=== PATIENT | male | born 1980 | race Caucasian/White ===

== ENCOUNTER 2018-02-27 02:31 | Inpatient (IN) ==
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
--- OUTSIDE RECORDS SUMMARY | 2018-02-27 02:59 | External Medical Summary | Referral Summary ---
:1980 Author Organization [facility] [address] [place] [address] Care Team Providers Name Role Phone Yadiel Sims Primary Care Physician Encounter VC Date(s): 07/11/17 - 07/11/17 [facility] [place] [phone] [place] Discharge Diagnosis: Mixed hyperlipidemia Discharge Diagnosis: HTN (hypertension), benign Discharge Diagnosis: GERD (gastroesophageal reflux disease) Discharge Diagnosis: Back pain Discharge Diagnosis: Type 2 diabetes mellitus Discharge Disposition: 01-Home or Self Care Attending Physician: Yadiel Sims MD Admitting Physician: Yadiel Sims MD Vital Signs Most recent to oldest [Reference Range]: 1 Temperature Tympanic [36.6-38.1 degC] 36.3 degC *LOW* (07/11/17 2:16 PM) Peripheral Pulse Rate [60-100 bpm] 64 bpm (07/11/17 2:16 PM) Blood Pressure [90-140/60-90 mmHg] 134/98 mmHg (07/11/17 2:16 PM) Problem List Condition Effective Dates Status Health Status Informant acne(Confirmed) Resolved ADD/ Hyperactivity(Confirmed) Resolved allergies(Confirmed) Resolved anxiety disorder(Confirmed) Resolved autism(Confirmed) Resolved Back pain(Confirmed) Active HTN (hypertension), Active benign(Confirmed) Evan esophagus(Confirmed) Resolved depression(Confirmed) Resolved Dysuria(Confirmed) Active gastro-esoph reflux(Confirmed) Resolved GERD (gastroesophageal reflux Active disease)(Confirmed) headache(Confirmed) Resolved insomnia(Confirmed) Resolved Abdominal pain, LLQ(Confirmed) Active migraines(Confirmed) [...] TWICE A DAY, # 120 caps, eRx: [facility] #[id number] Start Date: 07/08/17 Status: OrderedGlucometer (DME) DME Item Rashi brand meter Dx E11.9 Testing 1 time daily, See Instructions, # 1 Each, 0 Refill(s), Pharmacy: [facility] #[id number], Rashi brand meter Dx E11.9 Testing 1 [...] HOURS AFTER LUNCHAND SUPPER DX E11.9 s dillons, See Instructions, # 100 Each, 2 Refill(s) Start Date: 12/22/16 Status: OrderedGlucometer strips (DME) DME Item [employer] BG VALUE NO CODE TEST STRIPS test BS BID fasting and alternate every other day 2 hours after lunch and supper. DX: e11.9, See Instructions, # 100 Each, 0 Refill(s), Pharmacy: [facility] #[id number], [employer] VALUE NO CODE TEST STRI... Start Date: 05/23/17 Status: OrderedMelatonin 3 mg, Oral, Bedtime (once a day), 0 Refill(s) Start Date: 07/11/17 Status: Orderedmeloxicam 15 mg oral tablet See Instructions, TAKE ONE TABLET BY MOUTH DAILY, # 30 tabs, eRx: [facility] #[id number] Start Date: 06/20/17 Status: OrderedmetFORMIN 500 mg oral tablet 500 mg 1 tabs, Oral, BID, # 180 tabs, 3 Refill(s), Pharmacy: [facility] # [id number], 1 tabs Oral BID Start Date: 11/25/16 Status: OrderedMetoprolol Succinate ER 50 mg oral tablet, extended release See Instructions, TAKE ONE TABLET BY MOUTH DAILY, # 30 tabs, 2 Refill(s), eRx: [facility] #[id number] Start Date: 05/24/17 Status: OrderedNexIUM 40 mg oral delayed release capsule 40 mg 1 caps, Oral, Daily, # 90 caps, 3 Refill(s), Pharmacy: [facility] # [id number], 1 caps Oral Daily Start Date: 11/25/16 Status: OrderedPatanol 0.1% ophthalmic solution See Instructions, PLACE 1-2 DROPS IN EACH EYE EVERY 12 HOURS NEEDED, # 5 unknown unit, 2 Refill(s), eRx: [facility] #[id number], PLACE 1-2 DROPS IN EACH EYE EVERY 12 HOURS NEEDED Start Date: 01/31/15 Status: OrderedraNITIdine 150 mg oral tablet See Instructions, TAKE TWO TABLETS BY MOUTH TWICE A DAY, # 120 tabs, eRx: [facility] #[id number] Start Date: 06/20/17 Status: OrderedRemeron 30 mg [...] 0 Refill(s) Start Date: 04/04/14 Status: Ordered Immunizations Given and Recorded Vaccine Date Status [...] Procedures Procedure Date Related Diagnosis Body Site Colonoscopy Social History Social History Type Response Smoking Status Current every day smoker; Type: E-Cigarette entered on: 03/21/15 Assessment and Plan Extracted from: Title: Office Visit Note Author: Yadiel Sims MD Date: 07/11/17 1.HTN (hypertension), benign Blood pressure appears to be well controlledat home a little bit high here today will continue to monitor carefully. Continue current treatment plan. Follow-up in 6 months. Laboratory studies ordered for fasting for later this week. Ordered: Comprehensive Metabolic Panel Lipid Panel Office Visit Level 4 Est 61051 2.Type 2 diabetes mellitus Fasting laboratory studies ordered will let them know what those show no change in current treatment for the time being. Ordered: Comprehensive Metabolic Panel Hemoglobin A1c Lipid Panel Office Visit Level 4 Est 82142 3.GERD (gastroesophageal reflux disease) Chronic and stable no change in current treatmentat this time. Ordered: Comprehensive Metabolic Panel Office Visit Level 4 Est 66515 4.Back pain Ordered: Office Visit Level 4 Est 55405 5.Mixed hyperlipidemia Laboratory studies ordered will see what they show neck further recommendations from there.
--- NOTE | 2018-02-27 03:03 | Emergency Department Report ---
General Adult HPI - General Chief complaint: Chest Pain Stated complaint: CP Time Seen by Provider: 02/27/18 02:46 Source: patient Mode of arrival: ambulatory Limitations: no limitations - History of Present Illness HPI narrative: 37-year-old male presents to the emergency department with the chief complaint of midsternal chest pain without radiation. Patient noted onset of symptoms yesterday and presented to [facility] for further evaluation and treatment. Patient was released after having a normal EKG and 2 negative troponins. Patient states that his chest pain never really fully went away and he awoke at approximately 12:30 this morning and decided to seek further evaluation. Patient describes his pain as moderate. Pain is a dull pressure sensation without radiation. No other complaints or associated symptoms. He was at home when his symptoms began. Symptoms have been persistent in nature since onset. - Related Data Home Medications Medication Instructions Recorded Confirmed Esomeprazole Magnesium [Nexium] 40 mg PO DAILY #0 05/20/09 08/30/17 raNITIdine HCl [Zantac] 300 mg PO BID #0 08/27/13 02/27/18 Atomoxetine HCl [Strattera] 80 mg PO HS #0 06/27/16 02/27/18 Dicyclomine HCl 10 mg PO BID #0 06/27/16 08/30/17 Quetiapine Fumarate [Seroquel Xr] 200 mg PO HS #0 06/27/16 02/27/18 Fexofenadine [Dariana] 60 mg PO DAILY 04/25/17 02/27/18 Melatonin 3 mg PO HS 04/25/17 02/27/18 Metformin [Glucophage] 500 mg PO BID 04/25/17 08/30/17 Metoprolol Succinate 50 mg PO DAILY 04/25/17 02/27/18 Meloxicam 15 mg PO DAILY 06/03/17 02/27/18 Remeron (mirtazapine) 30 mg tablet 30 mg PO HS tab 08/17/17 08/30/17 amoxapine 50 mg tablet 75 mg PO BID tab 08/17/17 02/27/18 Allergies Allergy/AdvReac Type Severity Reaction Status Date / Time propofol Allergy Intermediate ARM SWELLS Verified 02/27/18 05:31 AND CASTILLO nitrofurantoin Allergy Mild SHAKING Verified 02/27/18 05:31 Penicillins Allergy Unknown RASH Verified 02/27/18 05:31 pertussis vaccine,fluid Allergy Unknown SEIZURE Verified 02/27/18 05:31 ORANGE OIL AdvReac Unknown SEVERE N/V Uncoded 02/27/18 05:31 SCENTED SOAPS AdvReac Unknown SEVERE Uncoded 02/27/18 05:31 ITCHING Review of Systems Constitutional: Denies: fever, chills Eyes: Denies: eye pain, eye discharge ENT: Denies: ear pain, throat pain Cardiovascular: Reports: chest pain. Denies: palpitations Respiratory: Denies: cough, dyspnea Gastrointestinal: Denies: abdominal pain, nausea, vomiting, diarrhea Genitourinary: Denies: urgency, dysuria Musculoskeletal: Denies: back pain, arthralgia Integumentary: Denies: erythema, rash Neurological: Denies: headache, numbness Psychiatric: Denies: anxiety, depression Endocrine: Denies: polydipsia, polyuria Hematological/Lymphatic: Denies: easy bruising, lymphadenopathy Allergic/Immunologic: Denies: urticaria, itchy eyes PFS Patient Stated Medical History Hypertension Yes Asthma No Sleep Apnea No Diabetes Mellitus Type 2 Yes Gastroesophageal Reflux Yes Disease Other GI Yes: flores's esophagus Osteoarthritis Yes Anesthesia Reactions Yes: to propofol-arm swelling and redness/pain Depression Yes Post Traumatic Stress Disorder Yes Other Behavioral Health Yes: AUTISTIC Surgical History: This patient has had previous operations and procedures as follows: 1. Right inguinal herniorrhaphy and hydrocelectomy on 10/30/[address] Mckeon at [facility] at [place], [place]. Postoperative diagnoses were right indirect inguinal hernia and right communicating scrotal hydrocele. 2. Esophagogastroduodenoscopy with biopsies at the distal esophagus and colonoscopy with random biopsies on 06/20/[address] Godwin at [facility] at [place], [place]. Postoperative diagnoses were hiatal hernia, irregular gastroesophageal junction suggestive of Flores's metaplasia and normal colonoscopy. Biopsies performed at the gastroesophageal junction showed focal intestinal metaplasia. Random biopsies performed throughout the colon showed edema and mild nonspecific chronic inflammation. 3. Left knee arthroscopy by Dr. Carvajal at [facility]. 4. Laparoscopic Charbel fundoplication in [address] Godwin at [place], [place]. 5. Laparoscopic appendectomy on 09/14/[address] Godwin at [facility] at [place], [place]. The pathology report on the appendix showed fecal impaction. There was no acute appendicitis. Discharge diagnoses for this hospitalization were right lower quadrant abdominal pain and autism. 6. Esophagogastroduodenoscopy with biopsies from distal esophagus on 07/08/[address] Godwin at [facility] at [place], [place]. Postoperative diagnoses were history of epigastric abdominal pain, history of right upper quadrant abdominal pain, history of Flores's metaplasia, small hiatal hernia and ongoing endoscopic evidence of Flores's metaplasia. Pathology report on biopsies of the distal esophagus did show Flores's esophagitis. There was no evidence of dysplasia. 7. Arthroscopy of the left knee with reconstruction of medial capsular ligament to the patella on 08/08/[address] Carvajal at [place], [place]. 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 8. Laparoscopic cholecystectomy with intraoperative cholangiogram on 04/07/[address] Montes at [place], [place]. Pathology report diagnoses on the gallbladder were acute and chronic cholecystitis. 9. Esophagogastroduodenoscopy with multiple biopsies of Flores's esophagus on 05/20/[address] Montes at [facility] at [place], [place]. Postoperative diagnoses were Flores's esophagus, status post Charbel fundoplication in 2006 and sliding hiatal hernia. Pathology report on these biopsies showed Flores's esophagitis. Biopsies were negative for dysplasia. 10. Esophagogastroduodenoscopy with biopsies on 06/29/[address] Sid Quevedo at the [facility] at [place], [place]. Postoperative diagnoses were Flores's esophagus and moderate sized hiatal hernia. Biopsies performed at the esophagus showed Flores's esophagus changes. Biopsies were indefinite for dysplasia. 11. Esophagogastroduodenoscopy with biopsies at the distal esophagus and colonoscopy on 07/14/[address] Sid Quevedo at the [facility] at [place], [place]. Postoperative diagnoses were Flores's esophagus, small hiatal hernia and unremarkable colonoscopic exam. Biopsies of the distal esophagus showed chronic esophagitis with intestinal metaplasia. There was no dysplasia. 12. Excision of foreign body from left lateral patellar area on 01/13/[address] Carvajal at [place], [place]. Postoperative diagnosis was foreign body at left lateral patellar region. 13. Esophagogastroduodenoscopy with biopsies on 07/06/[address] Gaines at the [facility] at [place], [place]. Postoperative diagnoses were Flores's esophagus and large sliding hiatal hernia. Biopsies of the distal esophagus showed Flores's esophagus. Biopsies were negative for dysplasia. 14. Endoscopic ultrasound examination of the pancreas and the bile duct on 09/27/[address] Massey at [facility] at [place], [place]. One postoperative diagnosis was no obvious changes of chronic pancreatitis seen in the pancreatic parenchyma. Another postoperative diagnosis was nondilated main pancreatic duct and normal nondilated common bile duct. 15. Esophagogastroduodenoscopy with biopsies of the distal esophagus on 08/28/[address] Montes at [facility] at [place], [place]. Postoperative diagnoses were Flores's esophagus, gastroesophageal reflux disease and recurrence of a sliding hiatal hernia. Biopsies of the distal esophagus showed Flores's esophagus changes. There was no dysplasia. 16. Esophagogastroduodenoscopy with biopsies on 09/09/[address] Mckeon at [facility] at [place], [place]. Postoperative diagnoses were gastroesophageal reflux disease, Flores's esophagus, status post laparoscopic Charbel fundoplication, large recurrent sliding hiatal hernia, gastric polyps and possible gastritis. Biopsies of the distal esophagus showed Flores's esophagus with no dysplasia. Some of the gastric polyps were removed and found to be benign hyperplastic gastric polyps. Biopsies of the cardia of the stomach showed mild patchy chronic gastritis. COMFORT test study at this procedure was negative. The patient has had other previous hospitalizations as follows: 1. Hospitalized from 06/21/08 to 06/22/08 at [facility] at [place], [place]. Admission diagnoses were alcohol intoxication, history of depression, and gastroesophageal reflux disease. Family History: Reviewed and noncontributory - Social History Smoking status: Current every day smoker second hand exposure: No Substance use type: does not use Alcohol intake frequency: does not drink Current occupational status: unemployed Does patient use chewing tobacco?: No Physical Exam - Limitations Limitations: no limitations - General General appearance: alert, in no apparent distress - Normal Exams: Head:: Normocephalic without trauma Eyes:: Pupils are PERRLA w/ EOMI, No scleral icterus, irritation, or foreign bodies noted ENMT:: No facial trauma, nasal exudates, pharyngeal erythema, or exudates are noted Dental: No fractured, loose, or missing teeth noted Neck:: Full range of motion, without adenopathy, JVD, bruits or thyromegaly Chest/Respirations:: Clear all guerrero, with good airflow, and symmetry bilaterally Cardiovascular:: Regular rate and rhythm, without murmur or gallop, Pulses 2+ all extremities, capillary refill, <2 seconds all extremities Abdomen:: Bowel sounds positive, soft, non-tender, non-distended, no hepatosplenomegaly, masses or bruits noted Lymphatic:: No lymphadenopathy, or lymphedema noted Musculoskeletal:: No tenderness, or deformity noted, good range of motion, all extremities Integumentary:: No rashes, hives, or bruising noted, hair and nails, without abnormality Neurological:: Patient is alert, and oriented, cranial nerves, motor/sensory/ cerebellar, exams w/o gross deficits, to observation Psychiatric:: Patient exhibits, appropriate attention, emotion and affect Course Vital Signs Temperature 98.2 F 02/27/18 02:38 Pulse Rate 89 02/27/18 02:38 Respiratory Rate 20 02/27/18 02:38 Blood Pressure 152/87 H 02/27/18 02:38 Pulse Oximetry 99 02/27/18 02:38 Temperature 98.2 F 02/27/18 02:38 Pulse Rate 89 02/27/18 02:38 Respiratory Rate 20 02/27/18 02:38 Blood Pressure 152/87 H 02/27/18 02:38 Pulse Oximetry 99 02/27/18 02:38 Medical Decision Making - [facility] Narrative Medical decision making narrative: Labs / imaging discussed in detail with the patient and family and questions are answered. Patient is given 324 mg of aspirin by mouth times one. Patient is given Lovenox 1 mg/kg subcutaneously 1 in the emergency department. Patient is given 40 mEq of calcium orally times one. Patient is given parental narcotic pain medication with resolution of pain. He remains pain-free in the emergency department. EKG is repeated does not show any ST changes. Patient is discussed with Dr. Gómez Chaney of cardiology and will be admitted to the service of the [facility]. Patient is discussed with Dr. Milton Laughlin who agrees to accept the patient to his service for further evaluation and treatment. Patient and family are in agreement with the current plan of management. Patient is admitted to the hospital in improved condition. No further orders from accepting or consulting physicians are in agreement with the current plan of management. - Differential Diagnosis ACS, pneumothorax, chest wall pain, Metabolic disorder - Lab Data Result diagrams: 02/27/18 03:32 02/27/18 03:32 - Radiology Data Chest x-ray: No acute processes. - EKG Data EKG #1 EKG results narrative: Sinus rhythm. 86 bpm. No STEMI. Reviewed with Dr. Chaney. EKG #2 EKG results narrative: Sinus rhythm. 89 bpm. No STEMI. Normal EKG. Reviewed with Dr. Chaney. Critical Care Time Critical Care Time: Yes Total Critical Care Time: 47 Attestation: 47 minutes of critical care time was assessed to the patient due to the need for complex medical decision making, potential for decompensation, and the need for repeat assessment at the bedside. Patient had a positive troponin value. Critical care time was spent treating the patient, documenting the medical record, making telephone calls on the patient's behalf, and updating family. Patient was admitted to the ICU for further evaluation and treatment. Disposition Clinical Impression: Elevated troponin Disposition: To [facility] [place] Acute Care Condition: Improved Time of Disposition: 05:00 - Seen By: physician
[2018-02-27] MEDS ORDERED: ASPIRIN 81 MG CHEWABLE TABLET PO ONE (04:20)
[2018-02-27] MEDS ORDERED: FentaNYL 100 MCG/2 ML INJECTION IVP ONE (04:20)
[2018-02-27] MEDS ORDERED: ENOXAPARIN 80 MG/0.8 ML INJECTION SQ ONE (05:11)
[2018-02-27] MEDS ORDERED: CLOPIDOGREL 75 MG TABLET PO ONE (05:49)
[2018-02-27] MEDS ORDERED: DEXTROSE 50% SYRINGE 50ml (1 AMP) IVP PRN (05:50)
[2018-02-27] MEDS ORDERED: NITROGLYCERIN 0.4 MG SUBLINGUAL TABLET SL PRN ×2 (05:50→12:40)
[2018-02-27] MEDS ORDERED: INSULIN ASPART 100unit/ml INJECTION SQ PRN (05:50)
[2018-02-27] MEDS ORDERED: MORPHINE SULFATE 2mg INJECTION IVP PRN (05:50)
[2018-02-27] MEDS ORDERED: ONDANSETRON 4 MG/2 ML INJECTION IVP PRN (05:50)
[2018-02-27] MEDS ORDERED: PANTOPRAZOLE 40 MG TABLET PO ONE (05:50)
[2018-02-27] MEDS ORDERED: ENOXAPARIN 150 MG/ML INJECTION SQ SCH (05:50)
[2018-02-27 05:57] VITALS: BMI 25.1
[2018-02-27] MEDS ORDERED: ENOXAPARIN 80 MG/0.8 ML INJECTION SQ SCH (06:15)
--- NOTE | 2018-02-27 06:20 | History & Physical Report ---
History of Present Illness Date: 02/27/18 Chief complaint: chest pain HPI: This is a 37 y/o male with a history of DM1, dyslipidemia, HTN and autism. The pateint has been experiencing intermittent chest pain for the past month. The patient describes these pains as not provoked. substernal pressure, non readiating, mild dyspnea, no nausea/vomiting. The pateint presented to [facility] earlier yesterday and 2 enz and ekg normal. discharged. His sx persisted and he presented to [place] ED where first enz was positve. EKG continued to be quiet. Pain resolved with fentanyl. Care was discussed with [facility] who r/c local admission as long as pain free. Lovenox started. Cardiology r/c plavix as well . Note that his brother one year ago and post mortem demonstrated 2 vessel CAD. Review of Systems Review of systems: no headache, no change in vision, no fever, chills or sweats, no neck or jaw pain, mild dyspnea on exertion, no heart palpations, no abdomen pain, no nausea/ vomiting, no focal neuro complaints. 12 point ROS negative except for described above. Past Medical History Medical History Updates: HTN, dm 2, dyslipidemia, autism Surgical History: This patient has had previous operations and procedures as follows: 1. Right inguinal herniorrhaphy and hydrocelectomy on 10/30/[address] Mckeon at [facility] at [place], [place]. Postoperative diagnoses were right indirect inguinal hernia and right communicating scrotal hydrocele. 2. Esophagogastroduodenoscopy with biopsies at the distal esophagus and colonoscopy with random biopsies on 06/20/[address] Godwin at [facility] at [place], [place]. 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 Biopsies performed at the gastroesophageal junction showed focal intestinal metaplasia. Random biopsies performed throughout the colon showed edema and mild nonspecific chronic inflammation. 3. Left knee arthroscopy by Dr. Carvajal at [facility]. 4. Laparoscopic Charbel fundoplication in [address] Godwin at [facility] at [place], [place]. 5. Laparoscopic appendectomy on 09/14/[address] Godwin at [facility] [place], [place]. The pathology report on the appendix showed fecal impaction. There was no acute appendicitis. Discharge diagnoses for this hospitalization were right lower quadrant abdominal pain and autism. 6. Esophagogastroduodenoscopy with biopsies from distal esophagus on 07/08/[address] Godwin at [facility] at [place], [place]. Postoperative diagnoses were history of epigastric abdominal pain, history of right upper quadrant abdominal pain, history of Esparza's metaplasia, small hiatal hernia and ongoing endoscopic evidence of Esparza's metaplasia. Pathology report on biopsies of the distal esophagus did show Esparza's esophagitis. There was no evidence of dysplasia. 7. Arthroscopy of the left knee with reconstruction of medial capsular ligament to the patella on 08/08/[address] Carvajal at [place], [place]. 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 8. Laparoscopic cholecystectomy with intraoperative cholangiogram on 04/07/[address] Montes at [place], [place]. Pathology report diagnoses on the gallbladder were acute and chronic cholecystitis. 9. Esophagogastroduodenoscopy with multiple biopsies of Esparza's esophagus on 05/20/[address] Montes at [facility] at [place], [place]. Postoperative diagnoses were Esparza's esophagus, status post Charbel fundoplication in 2006 and sliding hiatal hernia. Pathology report on these biopsies showed Esparza's esophagitis. Biopsies were negative for dysplasia. 10. Esophagogastroduodenoscopy with biopsies on 06/29/[address] Sid Quevedo at the [facility] at [place], [place]. Postoperative diagnoses were Esparza's esophagus and moderate sized hiatal hernia. Biopsies performed at the esophagus showed Esparza's esophagus changes. Biopsies were indefinite for dysplasia. 11. Esophagogastroduodenoscopy with biopsies at the distal esophagus and colonoscopy on 07/14/[address] Sid Quevedo at the [facility] at [place], [place]. Postoperative diagnoses were Esparza's esophagus, small hiatal hernia and unremarkable colonoscopic exam. Biopsies of the distal esophagus showed chronic esophagitis with intestinal metaplasia. There was no dysplasia. 12. Excision of foreign body from left lateral patellar area on 01/13/[address] Carvajal at [place], [place]. Postoperative diagnosis was foreign body at left lateral patellar region. 13. Esophagogastroduodenoscopy with biopsies on 07/06/[address] Gaines at the [facility] at [place], [place]. Postoperative diagnoses were Esparza's esophagus and large sliding hiatal hernia. Biopsies of the distal esophagus showed Esparza's esophagus. Biopsies were negative for dysplasia. 14. Endoscopic ultrasound examination of the pancreas and the bile duct on 09/27/[address] Massey at [facility] at [place], [place]. One postoperative diagnosis was no obvious changes of chronic pancreatitis seen in the pancreatic parenchyma. Another postoperative diagnosis was nondilated main pancreatic duct and normal nondilated common bile duct. 15. Esophagogastroduodenoscopy with biopsies of the distal esophagus on 08/28/[address] Montes at [facility] [place], [place]. Postoperative diagnoses were Esparza's esophagus, gastroesophageal reflux disease and recurrence of a sliding hiatal hernia. Biopsies of the distal esophagus showed Esparza's esophagus changes. There was no dysplasia. 16. Esophagogastroduodenoscopy with biopsies on 09/09/[address] Mckeon at [facility] [place], [place]. Postoperative diagnoses were gastroesophageal reflux disease, Esparza's esophagus, status post laparoscopic Charbel fundoplication, large recurrent sliding hiatal hernia, gastric polyps and possible gastritis. Biopsies of the distal esophagus showed Esparza's esophagus with no dysplasia. Some of the gastric polyps were removed and found to be benign hyperplastic gastric polyps. Biopsies of the cardia of the stomach showed mild patchy chronic gastritis. COMFORT test study at this procedure was negative. The patient has had other previous hospitalizations as follows: 1. Hospitalized from 06/21/08 to 06/22/08 at [facility] at [place], [place]. Admission diagnoses were alcohol intoxication, history of depression, and gastroesophageal reflux disease. Family History Updates: CAD brother Family History: As Above - Social History Smoking status: Current every day smoker Substance use type: does not use Alcohol intake frequency: does not drink Household members: none Current residence: Apartment/Private Home Medications Home Medications Medication Instructions Recorded Confirmed Type Esomeprazole Magnesium [Nexium] 40 mg PO DAILY #0 05/20/09 08/30/17 History raNITIdine HCl [Zantac] 300 mg PO BID #0 08/27/13 02/27/18 History Atomoxetine HCl [Strattera] 80 mg PO HS #0 06/27/16 02/27/18 History Dicyclomine HCl 10 mg PO BID #0 06/27/16 08/30/17 History Quetiapine Fumarate [Seroquel Xr] 200 mg PO HS #0 06/27/16 02/27/18 History Fexofenadine [Dariana] 60 mg PO DAILY 04/25/17 02/27/18 History Melatonin 3 mg PO HS 04/25/17 02/27/18 History Metformin [Glucophage] 500 mg PO BID 04/25/17 08/30/17 History Metoprolol Succinate 50 mg PO DAILY 04/25/17 02/27/18 History Remeron (mirtazapine) 30 mg tablet 30 mg PO HS tab 08/17/17 08/30/17 History Allergies Allergy/AdvReac Type Severity Reaction Status Date / Time propofol Allergy Intermediate ARM SWELLS Verified 02/27/18 05:31 AND CASTILLO nitrofurantoin Allergy Mild SHAKING Verified 02/27/18 05:31 Penicillins Allergy Unknown RASH Verified 02/27/18 05:31 pertussis vaccine,fluid Allergy Unknown SEIZURE Verified 02/27/18 05:31 pantoprazole [From Protonix] AdvReac Intermediate Nausea and Verified 02/27/18 08:38 Vomiting ORANGE OIL AdvReac Unknown SEVERE N/V Uncoded 02/27/18 05:31 SCENTED SOAPS AdvReac Unknown SEVERE Uncoded 02/27/18 05:31 ITCHING Exam Vital Signs: Temperature 98.2 F 02/27/18 02:38 Pulse Rate 88 02/27/18 04:14 Respiratory Rate 18 02/27/18 04:58 Blood Pressure 143/86 H 02/27/18 04:14 Pulse Oximetry 100 02/27/18 04:14 Telemetry Rhythm: Sinus Rhythm Height/Weight/BMI: Height 1.75 m Weight 77.3 kg Body Mass Index 25.1 - Constitutional Present: no acute distress - Routine HEENT Exam Head: Present: normocephalic Eye: Present: PERRL ENT: Present: mucous membranes moist - Routine Neck Exam Present: supple - Routine Respiratory Exam Present: CTA bilaterally - Routine Cardiovascular Exam Present: RRR - Routine Abdominal Exam Present: soft, non tender - Routine Extremities Exam Present: no edema - Routine Back/Spine/Pelvis Exam Back/Spine: Present: full ROM - Routine Skin Exam Present: dry - Routine Neurological Exam Present: alert, oriented X3, normal tone - Routine Psychiatric Exam Present: normal affect, normal thought process Results - Labs CBC & Chem 7: 02/27/18 03:32 02/27/18 03:32 Labs: reviewed and will be discussed below pCXR no acute process EKG sinus wihtout acute ischemic changes Assessment and Plan (1) NSTEMI (non-ST elevated myocardial infarction) Current visit: Yes Status: Acute (2) DM type 2 (diabetes mellitus, type 2) Current visit: Yes Status: Acute (3) Dyslipidemia Current visit: Yes Status: Acute Assessment and Plan: 1. NSTEMI acute POA: cardiology will see. plan to cath. lovenox, plavix ( card r/c), aspirin in ED, NPO. risk include dm2, HtN, dyslipidemia, family hx. 2. dM2 chronic POA: correctional plan 3. dyslipidemia: statin 4. hx of autism chronic POA: to be aware of 5. tobacco abuse: currently vap's. continue to encourage to stop 6. DVT ppx; SCD, lovenox 7. GI ppx; Rx for prpotonix. states it causes emesis. (held). Gerber Assessment Elevated troponin - NSTEMI Hypernatremia (POA) Hypokalemia (POA) Type II DM HTN HDL Tobacco dependency Autism Plan Inpatient admission to [facility] for treatment of NSTEMI. Anticipate greater than 2 midnights of care needed. Initiate ASA therapy. Start Lovenox. Consult Dr Chaney - anticipates cardiac cath for further evaluation. Will keep pt NPO for cath and hold metformin. ECHO secondary to NSTEMI Tobacco cessation information. IVF of 1/2NS with potassium to help hydration and correct electrolytes. Continue home medications, holding metformin due to cath. Monitor blood sugars due to DM. Care to return to Dr Sims at time of discharge from [facility]. DVT Prophylaxis: SCD's, Lovenox Resuscitation Status: Full Code - Time spent with patient Time with patient PN: 35 minutes - Physician Narrative Physician: Gildardo Mayes MD Narrative: Date: 02/27/18 Time: 1754 GERBER Have independently interviewed and examined pt. Chart reviewed. Case discussed with pt's mother and Dr Chaney. Reviewed above not and concur. CC: Chest pain. HPI: 37 y/o male presents to ED for evaluation of intermittent chest pain over the past month. Reports retrosternal pain ('right where my heart is' pointing to sternum). Notes mild dyspnea. Pain will increase with deep breath. Not feeling palpitations or heart irregularity. Can worsen with activities. No having increasing acid reflux or indigestion. Denies pain with swallow or sensation of food catching with swallow. Appetite stable-no nausea or vomiting. Not having cough or congestion. No f/c. Urinating well. No headache or head pain. No neurological changes. Apparently was seen at [facility] yesterday for evaluation: 2 sets of enzymes and EKG negative. Discharged. Came to [facility] as symptoms persisted. Evaluated in ED. Initial Troponin showing elevation. Patient admitted to [facility] for further evaluation and cardiac care. Anticipated length of stay though to be greater than 2 midnights due to acute NSTEMI. PHMx: Type II DM, HTN, HDL, Tobacco dependency, Autism PSxHx: see above. ALL: see MAR MEDS: see MAR SHx: Single. Resides independently in [facility] in [place] with guard dog. Quits ETOH. 'Vaps' Dr Sims is PCP FHx: Heart disease in both sides of family. Younger brother -was found to have CAD on post mortem exam. ROS: as in HPI. Remainder of 10 point ROS discussed with patient and negative EXAM GEN: WDWNWM awake and alert HEENT: NC/AT PERRLA EOMI MMM Neck: Supple, trachea midline Lungs: clear bilaterally without crackles of wheezes CV: regular without murmur AB: soft flat NT/ND +BS EXT: no c/c/e Skin: warm and dry Neuro: CN II-XII intact, no focal deficits Psych: awake alert thoughts linear MS: normal muscle mass and tone in upper and lower ext Assessment Elevated troponin - NSTEMI Hypernatremia (POA) Hypokalemia (POA) Type II DM HTN HDL Tobacco dependency Autism Plan Inpatient admission to [facility] for treatment of NSTEMI. Anticipate greater than 2 midnights of care needed. Initiate ASA therapy. Start Lovenox. Consult Dr Chaney - anticipates cardiac cath for further evaluation. Will keep pt NPO for cath and hold metformin. ECHO secondary to NSTEMI Tobacco cessation information. IVF of 1/2NS with potassium to help hydration and correct electrolytes. Continue home medications, holding metformin due to cath. Monitor blood sugars due to DM. Care to return to Dr Sims at time of discharge from [facility]. Hospital Course Summary Disclaimer: The visit summary below is not to be considered part of the above Progress Note. Hospital Course: 02/27/18 Inpatient admission to [facility] for treatment of NSTEMI. Anticipate greater than 2 midnights of care needed. Initiate ASA therapy. Start Lovenox. Consult Dr Chaney - anticipates cardiac cath for further evaluation. Will keep pt NPO for cath and hold metformin. ECHO secondary to NSTEMI Tobacco cessation information. IVF of 1/2NS with potassium to help hydration and correct electrolytes. Continue home medications, holding metformin due to cath. Monitor blood sugars due to DM. Care to return to Dr Sims at time of discharge from [facility].
--- NOTE | 2018-02-27 08:10 | XRay Report ---
Indication: pain PROCEDURE: XR chest 1V: Encounter: Initial Comparison: 07/26/2017 Findings: There is a hiatal hernia in the middle mediastinum with an air-fluid level. Heart size is normal. The lungs are clear. There is no focal opacity to suggest atelectasis or pneumonia. No mediastinal or hilar adenopathy. No pleural effusion. There is no significant tortuosity of the descending thoracic aorta. There is mild degenerative disc disease of the thoracic spine. IMPRESSION: No acute process. .
[2018-02-27] MEDS ORDERED: METOCLOPRAMIDE 10mg/2ml INJECTION IVP PRN (08:22)
[2018-02-27] MEDS ORDERED: PANTOPRAZOLE 40 MG INJECTION IVP SCH (09:00)
[2018-02-27] MEDS: SALINE FLUSH 10ml SYRINGE IVF PRN ×2 (09:41→09:42)
[2018-02-27] MEDS: 1/2 NS with KCL 20mEq 1,000 ML IV SCH ×2 (10:14→16:13)
[2018-02-27] MEDS ORDERED: NS 500 ML IV SCH (10:15)
[2018-02-27] MEDS ORDERED: Verapamil 5 MG/2 ML VIAL ONE (10:52)
[2018-02-27] MEDS ORDERED: MIDAZOLAM 2mg/2ml INJECTION ONE ×2 (10:52→12:01)
[2018-02-27] MEDS ORDERED: HEPARIN 1,000unit/ml INJECTION 10ml ONE (10:54)
[2018-02-27] MEDS ORDERED: LIDOCAINE 1% (10mg/ml) 30ml SDV INJ ONE (10:54)
[2018-02-27] MEDS ORDERED: NITROGLYCERIN 50MG INJECTION IV ONE (10:54)
[2018-02-27] MEDS ORDERED: HEPARIN 1,000 UNITS/500 ML PREMIX (*CVL ONLY*) IV ONE (10:54)
[2018-02-27] MEDS ORDERED: FentaNYL 100 MCG/2 ML INJECTION ONE (10:55)
--- NOTE | 2018-02-27 11:36 | Cardiology Consult Note ---
History of Present Illness Consult reason: chest pain History of present illness: This is a 37 y/o male with a history of DM1, dyslipidemia, HTN and autism. The pateint has been experiencing intermittent chest pain for the past month. The patient describes these pains as not provoked. substernal pressure, non readiating, mild dyspnea, no nausea/vomiting. The pateint presented to [facility] earlier yesterday and 2 enz and ekg normal. discharged. His sx persisted and he presented to [place] ED where first enz was positve. EKG continued to be quiet. Pain resolved with fentanyl. Care was discussed with [facility] who r/c local admission as long as pain free. Lovenox started. Cardiology r/c plavix as well . Note that his brother one year ago and post mortem demonstrated 2 vessel CAD. History is mostly provided by patient's mother. Patient has been having more chest pain in the past week yesterday while shopping at [employer] he felt about to blackout and experienced near heaviness in the chest felt like someone sitting on his chest no associated palpitations. He presents to [facility] emergency room was observed for 4 hours pain resolved and apparently his enzymes and EKGs were unremarkable so was released home. Around 2 AM he called his mother expressing recurrent severe substernal chest pressure and was all soaked in sweats. Unremarkable EKG in our emergency room but elevated troponin 0.2 triggered a cardiac consultation, and I stayed in touch with Dr. Rudolph regarding his management. His chest pain resolved with fentanyl in ER he was treated for acute HI with aspirin loading dose of Plavix and full dose Lovenox. Patient was admitted to CCU under hospitalist service. He remains nothing by mouth. Right around 8 AM while in laying in bed he complained to his nurse of left-sided chest pain that was worse with laying down and breathing, improved by sitting up and resolved following one sublingual nitroglycerin. Was positional as well worse with laying on the left side. EKG did not show ST elevation or depression and no EKG signs of pericarditis either. See physical exam below as I did not here pericardial friction rub. Obtained his echocardiogram a stat and reviewed the beginning of it being obtained by mechanic foreman did not show any significant pericardial effusion. Patient and mother were quite emotional and broke out in tears telling me about his brother that passed in August at age 30. Patient also has a long-standing history of GI problems GERD and multiple procedures, see below, patient reports improvement of his heartburn on proton pump inhibitors. Review of Systems Review of systems: no headache, no change in vision, no fever, chills , no neck or jaw pain, mild dyspnea on exertion, no heart palpations, no abdomen pain, no nausea/vomiting, no focal neuro complaints. 12 point ROS negative except for described above. Review of Systems All systems PM: 10-point ROS was reviewed, no additional remarkable complaints except PFSH Patient Stated Medical History Hypertension Yes Diabetes Mellitus Type 2 Yes Gastroesophageal Reflux Yes Disease Other GI Yes: flores's esophagus Osteoarthritis Yes Anesthesia Reactions Yes: to propofol-arm swelling and redness/pain Depression Yes Post Traumatic Stress Disorder Yes Other Behavioral Health Yes: AUTISTIC Medical History Updates: HTN, dm 2, dyslipidemia, autism Surgical History: This patient has had previous operations and procedures as follows: 1. Right inguinal herniorrhaphy and hydrocelectomy on 10/30/[address] Mckeon at [facility] [place], [place]. Postoperative diagnoses were right indirect inguinal hernia and right communicating scrotal hydrocele. 2. Esophagogastroduodenoscopy with biopsies at the distal esophagus and colonoscopy with random biopsies on 06/20/[address] Godwin at [place], [place]. Postoperative diagnoses were hiatal hernia, irregular gastroesophageal junction suggestive of Flores's metaplasia and normal colonoscopy. Biopsies performed at the gastroesophageal junction showed focal intestinal metaplasia. Random biopsies performed throughout the colon showed edema and mild nonspecific chronic inflammation. 3. Left knee arthroscopy by Dr. Carvajal at [facility]. 4. Laparoscopic Charbel fundoplication in [address] Godwin at [facility] [place] [facility] [place], [place]. 5. Laparoscopic appendectomy on 09/14/[address] Godwin at [place], [place]. The pathology report on the appendix showed fecal impaction. There was no acute appendicitis. Discharge diagnoses for this hospitalization were right lower quadrant abdominal pain and autism. 6. Esophagogastroduodenoscopy with biopsies from distal esophagus on 07/08/[address] Godwin at [facility] [place], [place]. Postoperative diagnoses were history of epigastric abdominal pain, history of right upper quadrant abdominal pain, history of Flores's metaplasia, small hiatal hernia and ongoing endoscopic evidence of Flores's metaplasia. Pathology report on biopsies of the distal esophagus did show Flores's esophagitis. There was no evidence of dysplasia. 7. Arthroscopy of the left knee with reconstruction of medial capsular ligament to the patella on 08/08/[address] Carvajal at [facility] [place], [place]. 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 8. Laparoscopic cholecystectomy with intraoperative cholangiogram on 04/07/[address] Montes at [facility] [place], [place]. Pathology report diagnoses on the gallbladder were acute and chronic cholecystitis. 9. Esophagogastroduodenoscopy with multiple biopsies of Flores's esophagus on 05/20/[address] Montes at [facility] [place] [facility] [place], [place]. Postoperative diagnoses were Flores's esophagus, status post Charbel fundoplication in 2006 and sliding hiatal hernia. Pathology report on these biopsies showed Flores's esophagitis. Biopsies were negative for dysplasia. 10. Esophagogastroduodenoscopy with biopsies on 06/29/[address] Sid Quevedo at the [facility] [place], [place]. Postoperative diagnoses were Flores's esophagus and moderate sized hiatal hernia. Biopsies performed at the esophagus showed Flores's esophagus changes. Biopsies were indefinite for dysplasia. 11. Esophagogastroduodenoscopy with biopsies at the distal esophagus and colonoscopy on 07/14/[address] Sid Quevedo at the [facility] at [place], [place]. Postoperative diagnoses were Flores's esophagus, small hiatal hernia and unremarkable colonoscopic exam. Biopsies of the distal esophagus showed chronic esophagitis with intestinal metaplasia. There was no dysplasia. 12. Excision of foreign body from left lateral patellar area on 01/13/[address] Carvajal at [facility] [place] [facility] [place], [place]. Postoperative diagnosis was foreign body at left lateral patellar region. 13. Esophagogastroduodenoscopy with biopsies on 07/06/[address] Gaines at the [facility] [place], [place]. Postoperative diagnoses were Flores's esophagus and large sliding hiatal hernia. Biopsies of the distal esophagus showed Flores's esophagus. Biopsies were negative for dysplasia. 14. Endoscopic ultrasound examination of the pancreas and the bile duct on 09/27/[address] Massey at [facility] at [place], [place]. One postoperative diagnosis was no obvious changes of chronic pancreatitis seen in the pancreatic parenchyma. Another postoperative diagnosis was nondilated main pancreatic duct and normal nondilated common bile duct. 15. Esophagogastroduodenoscopy with biopsies of the distal esophagus on 08/28/[address] Montes at [facility] [place] [facility] [place], [place]. Postoperative diagnoses were Flores's esophagus, gastroesophageal reflux disease and recurrence of a sliding hiatal hernia. Biopsies of the distal esophagus showed Flores's esophagus changes. There was no dysplasia. 16. Esophagogastroduodenoscopy with biopsies on 09/09/[address] Mckeon at [facility] at [place], [place]. Postoperative diagnoses were gastroesophageal reflux disease, Flores's esophagus, status post laparoscopic Charbel fundoplication, large recurrent sliding hiatal hernia, gastric polyps and possible gastritis. Biopsies of the distal esophagus showed Flores's esophagus with no dysplasia. Some of the gastric polyps were removed and found to be benign hyperplastic gastric polyps. Biopsies of the cardia of the stomach showed mild patchy chronic gastritis. COMFORT test study at this procedure was negative. The patient has had other previous hospitalizations as follows: 1. Hospitalized from 06/21/08 to 06/22/08 at [facility] [place], [place]. Admission diagnoses were alcohol intoxication, history of depression, and gastroesophageal reflux disease. Family History Updates: CAD brother - Social History Smoking status: Current every day smoker second hand exposure: No Substance use type: does not use Alcohol intake frequency: does not drink Household members: none Current occupational status: unemployed Does patient use chewing tobacco?: No Current residence: Apartment/Private Home Medications Home Medications Medication Instructions Recorded Confirmed Type Esomeprazole Magnesium [Nexium] 40 mg PO DAILY #0 05/20/09 08/30/17 History raNITIdine HCl [Zantac] 300 mg PO BID #0 08/27/13 02/27/18 History Atomoxetine HCl [Strattera] 80 mg PO HS #0 06/27/16 02/27/18 History Dicyclomine HCl 10 mg PO BID #0 06/27/16 08/30/17 History Quetiapine Fumarate [Seroquel Xr] 200 mg PO HS #0 06/27/16 02/27/18 History Fexofenadine [Dariana] 60 mg PO DAILY 04/25/17 02/27/18 History Melatonin 3 mg PO HS 04/25/17 02/27/18 History Metformin [Glucophage] 500 mg PO BID 04/25/17 08/30/17 History Metoprolol Succinate 50 mg PO DAILY 04/25/17 02/27/18 History Meloxicam 15 mg PO DAILY 06/03/17 02/27/18 History Remeron (mirtazapine) 30 mg tablet 30 mg PO HS tab 08/17/17 08/30/17 History amoxapine 50 mg tablet 75 mg PO BID tab 08/17/17 02/27/18 History Allergies Allergy/AdvReac Type Severity Reaction Status Date / Time propofol Allergy Intermediate ARM SWELLS Verified 02/27/18 05:31 AND CASTILLO nitrofurantoin Allergy Mild SHAKING Verified 02/27/18 05:31 Penicillins Allergy Unknown RASH Verified 02/27/18 05:31 pertussis vaccine,fluid Allergy Unknown SEIZURE Verified 02/27/18 05:31 pantoprazole [From Protonix] AdvReac Intermediate Nausea and Verified 02/27/18 08:38 Vomiting ORANGE OIL AdvReac Unknown SEVERE N/V Uncoded 02/27/18 05:31 SCENTED SOAPS AdvReac Unknown SEVERE Uncoded 02/27/18 05:31 ITCHING Exam Vital signs: Temperature 98.1 F 02/27/18 07:45 Pulse Rate 88 02/27/18 10:45 Respiratory Rate 24 02/27/18 10:45 Blood Pressure 137/87 02/27/18 10:45 Pulse Oximetry 99 02/27/18 10:45 - Constitutional no acute distress, obese - Routine HEENT Exam Head: Present: normocephalic, atraumatic Eye: Present: EOMI (pupils equally round) ENT: Present: mucous membranes moist - Routine Neck Exam Present: normal carotid upstroke. Absent: JVD, carotid bruit, lymphadenopathy, thyromegaly - Routine Chest/Breast/Axilla Exam Chest wall: Absent: tenderness - Routine Respiratory Exam Present: CTA bilaterally - Routine Cardiovascular Exam Present: RRR, S1 (normal), S2 (normal), S4. Absent: no murmur, rubs, JVD - Routine Abdominal Exam Present: soft, normoactive bowel sounds, non distended. Absent: organomegaly, mass - Routine Extremities Exam Present: no edema, pulses intact, normal capillary refill. Absent: cyanosis, clubbing - Routine Skin Exam Present: intact, dry. Absent: cyanosis, erythema - Routine Neurological Exam Present: alert, oriented X3, CN II-XII intact, moving all extremities, vision grossly intact, hearing grossly intact, normal speech. Absent: motor deficit, hemineglect, facial asymmetry - Routine Psychiatric Exam Present: cooperative, anxious Results 02/27/18 03:32 02/27/18 03:32 Cardiac Enzymes 02/27/18 Range/Units 06:08 Troponin I < 0.012 D (0-0.12) ng/ml Lipids 02/27/18 Range/Units 06:08 Triglycerides 184 H (40-160) mg/dL Cholesterol 109 L (132-199) mg/dL HDL Cholesterol 38 L (40-60) mg/dL Cholesterol/HDL Ratio 2.9 (0-5.0) RATIO Intake and Output 02/26/18 02/27/18 02/27/18 22:59 06:59 14:59 Intake Total 6.25 / 6.25 Output Total 400 / 400 175 / 175 Balance -400 / -400 -168.75 / -168.75 Intake: IV 6.25 / 6.25 Ns 500 ml @ 75 mls/hr IV . 6.25 / 6.25 [id number] [facility] Rx#:[id number] Output: Urine 400 / 400 175 / 175 Other: Urine Appearance Clear Clear Urine Color Yellow Pale Yellow Urine Odor Normal Weight 77.3 kg - EKG Interpretation EKG: sinus rhythm, no acute changes (although there is a questionable minimal T wave abnormality V2 and V3 Ammann, no diagnostic ST depression or elevation noted diagnostic Q waves) Assessment and Plan - Assessment and Plan Acute non-ST elevation HI Suspect post HI pericarditis Diabetes mellitus type 2 Hypertension Dyslipidemia Positive family history of premature CAD History of autism Treatment for acute HI and Plavix lockers statin full dose dose Lovenox starting him in ER Counseled the patient and the presence of his appearance but indication alternatives risks and benefits of a heart catheter putting the risk of complications hematoma vascular damage and allergy renal failure HI stroke or and agree to proceed Dr. Monae agreed to be on standby for intervention Echocardiogram reviewed on the spot It is noted the second troponin came back normal, differential diagnosis probably a very limited HI although a lab error on the first troponin cannot be excluded Thank you for consultation Hospital Course Summary Disclaimer: The visit summary below is not to be considered part of the above Progress Note.
[2018-02-27] MEDS ORDERED: METOPROLOL 5mg/5ml INJECTION IVP ONE (11:58)
[2018-02-27] MEDS ORDERED: SALINE FLUSH 10ml SYRINGE ONE (11:59)
[2018-02-27] MEDS ORDERED: HYDROCODONE/APAP 5mg/325mg TABLET PO PRN (12:40)
[2018-02-27] MEDS ORDERED: PROMETHAZINE 25 MG INJECTION IVP PRN (12:40)
[2018-02-27] MEDS ORDERED: BISACODYL 10 MG SUPPOSITORY RECTALLY PRN (12:40)
[2018-02-27] MEDS ORDERED: MORPHINE SULFATE 4mg INJECTION IVP PRN ×2 (12:40)
[2018-02-27] MEDS ORDERED: LORazepam 0.5 MG TABLET PO PRN (12:40)
[2018-02-27] MEDS ORDERED: ATROPINE 1 MG/ML INJECTION IVP PRN (12:40)
[2018-02-27] MEDS ORDERED: ACETAMINOPHEN 325 MG TABLET PO PRN (12:40)
[2018-02-27] MEDS ORDERED: MAG-AL + SIM ORAL LIQUID 30ml PO PRN (12:40)
[2018-02-27] MEDS ORDERED: PNEUMOCOCCAL 13 VACCINE 0.5ml INJECTION IM ONE (16:23)
[2018-02-27] MEDS: ASPIRIN *EC* 81 MG TABLET PO SCH (17:33)
[2018-02-27] MEDS: ATORVASTATIN 40 MG TABLET PO SCH ×2 (19:16→21:43)
[2018-02-27] MEDS: RANITIDINE 150 MG TABLET PO SCH ×2 (19:16→21:43)
[2018-02-27] MEDS: MELATONIN 1 MG TABLET PO SCH ×2 (19:16→21:43)
[2018-02-27] MEDS: ATOMOXETINE 10 MG PO SCH ×2 (19:17→21:43)
[2018-02-27] MEDS: ENOXAPARIN 80 MG/0.8 ML INJECTION SQ SCH (19:18)
[2018-02-27] MEDS ORDERED: AMOXAPINE PO SCH (21:00)
[2018-02-28] MEDS: 1/2 NS with KCL 20mEq 1,000 ML IV SCH ×4 (01:08→12:48)
[2018-02-28 07:13] VITALS: TEMP 98.1
[2018-02-28] MEDS ORDERED: CLOPIDOGREL 75 MG TABLET PO SCH (09:00)
--- NOTE | 2018-02-28 09:38 | Echocardiogram ---
COMPLETE ECHOCARDIOGRAM REPORT DATE 02/27/2018 INDICATION Chest pain with elevated troponin, patient is diabetic, non-STEMI, patient had chest pain with positional changes suggestive of pericarditis as well, and this is to check for wall motion abnormality and the presence of pericardial fluid. TECHNICAL QUALITY Technically good 2-D, M-mode, Doppler echocardiographic images were submitted for interpretation. FINDINGS 1. CARDIAC CHAMBERS. All cardiac chamber measurements are normal. Aortic root diameter is normal. 2. LEFT VENTRICLE. Analysis reveals wall thickness visually appears to be within upper-normal range. Measurement on 2-D--of the posterior wall were 0.93 cm, septal wall 1.08 cm. Wall motion analysis is normal. LV systolic function is normal. No significant regional wall motion abnormality was identified. Ejection fraction was normal, measured 74%. Diastolic function assessment is normal. 3. VALVES. Aortic valve exhibits very minimal sclerotic changes. Valve excursion is normal. All other three valves exhibit normal structure and motion. Specifically, the pulmonic valve leaflets appear structurally normal without any thickening and exhibit normal opening and no post-stenotic dilatation present. 4. DOPPLER. Shows trace regurgitation involving all four valves, none of hemodynamic significance. Systolic PA pressure is estimated at 28 mmHg per Bernoulli equation. The velocity at the pulmonic valve 1.47 m/sec with a maximum gradient of 9 mmHg is borderline increased but, correlating with the 2- D imaging, is not well to represent any clinically significant pulmonic valve stenosis. Subcostal views were technically difficult and inadequate to assess the pericardial space well. However, appears to be only physiologic pericardial effusion best appreciated on the parasternal long axis views. IMPRESSION 1. Normal cardiac chamber size. 2. Normal LV systolic function, EF of 74%, without significant regional wall motion abnormality. 3. No significant valvular dysfunction. 4. Borderline increased flow velocity at the pulmonic valve level without significant pulmonic stenosis. 5. Physiologic pericardial effusion is present. MTDD
[2018-02-28] MEDS: ASPIRIN *EC* 81 MG TABLET PO SCH (09:43)
[2018-02-28] MEDS: RANITIDINE 150 MG TABLET PO SCH (09:43)
[2018-02-28] MEDS: ENOXAPARIN 80 MG/0.8 ML INJECTION SQ SCH (09:44)
[2018-02-28 09:55] VITALS: O2SAT 97
--- NOTE | 2018-02-28 10:48 | Cardiology Progress Note ---
Subjective Interval history: slept in. denies cp ,dyspnea . denies pain at his R wrist or swelling. no pleuritic cp and able to lie down comfortably labs and tele reviewed. NSR. subsequent troponins NL c/o periumbilical/epigastric pain. Exam Vital signs: Temperature 98.1 F 02/28/18 07:13 Pulse Rate 75 02/28/18 09:12 Respiratory Rate 17 02/28/18 08:00 Blood Pressure 139/69 02/28/18 08:00 Pulse Oximetry 97 02/28/18 09:55 Inpatient Medications: Generic Name Dose Route Start Last Admin Trade Name Freq PRN Reason Stop Dose Admin Acetaminophen 325 - 650 mg 02/27/18 12:40 Tylenol PO Q5H PRN Pain Hydrocodone Bitart/Acetaminophen 1 - 2 tab 02/27/18 12:40 [place]idan 5/325 PO Q5H PRN Pain Al Hydroxide/Mg Hydroxide 30 ml 02/27/18 12:40 Maalox Plus PO Q3H PRN Indigestion Aspirin 81 mg 02/27/18 09:00 02/28/18 09:43 Ecotrin PO 81 mg DAILY ALTA Administration Atomoxetine HCl 80 mg 02/27/18 21:00 02/27/18 21:43 Strattera PO Not Given HS [facility] Atorvastatin Calcium 40 mg 02/27/18 21:00 02/27/18 21:43 Lipitor PO Not Given HS [facility] Atropine Sulfate 0.5 mg 02/27/18 12:40 Atropine IVP Q5M PRN Bradycardia Bisacodyl 10 mg 02/27/18 12:40 Dulcolax RECTALLY DAILY PRN Constipation Clopidogrel Bisulfate 75 mg 02/28/18 09:00 02/28/18 09:44 Plavix PO 75 mg DAILY ALTA Administration Dextrose 25 ml 02/27/18 05:50 D50%W IVP PRN PRN Hypoglycemia Enoxaparin Sodium 80 mg 02/27/18 18:00 02/28/18 09:44 Lovenox 1 mg/kg (80 mg) 80 mg SQ Administration Q12H [facility] Potassium Chloride/Sodium Chloride 1,000 mls @ 100 mls/hr 02/27/18 10:15 02/10 09:42 1/2 Ns With Kcl 20meq Premix IV 100 mls/hr .Q10H ALTA Administration Insulin Aspart 1 - 5 unit 02/27/18 05:50 Novolog SQ SS PRN Hyperglycemia Protocol Lorazepam 0.5 - 1 mg 02/27/18 12:40 Ativan PO Q4H PRN Anxiety Lorazepam 0.5 - 1 mg 02/27/18 12:40 Ativan Inj IVP Q4H PRN Anxiety Magnesium Hydroxide 30 ml 02/27/18 12:40 Mom PO DAILY PRN Constipation Melatonin 3 mg 02/27/18 21:00 02/27/18 21:43 Melatonin PO Not Given HS [facility] Metoclopramide HCl 10 mg 02/27/18 08:22 02/27/18 13:57 Reglan IVP 10 mg Q6H PRN Administration Metoprolol Succinate 50 mg 02/27/18 13:00 02/28/18 09:44 Toprol Xl PO 50 mg DAILY ALTA Administration Morphine Sulfate 2 mg 02/27/18 05:50 Morphine Sulf 2 Mg Inj IVP Q10M PRN Chest pain Morphine Sulfate 2 - 4 mg 02/27/18 12:40 Morphine Sulfate Inj IVP Q5M PRN Angina Morphine Sulfate 2 - 4 mg 02/27/18 12:40 02/27/18 12:52 Morphine Sulfate Inj IVP 02/28/18 12:39 2 mg Q2H PRN Administration Pain Nitroglycerin 0.4 mg 02/27/18 05:50 02/27/18 07:48 Nitrostat SL 0.4 mg Q5M PRN Administration Chest pain Nitroglycerin 0.4 mg 02/27/18 12:40 Nitrostat SL Q5M PRN Angina Ondansetron HCl 4 mg 02/27/18 05:50 Zofran IVP Q6H PRN Nausea &/or vomiting Promethazine HCl 12.5 - 25 mg 02/27/18 12:40 Phenergan Inj IVP Q6H PRN Nausea &/or vomiting Quetiapine Fumarate 200 mg 02/27/18 21:00 02/27/18 21:43 Seroquel Xr PO Not Given HS [facility] Ranitidine HCl 300 mg 02/27/18 21:00 02/28/18 09:43 Zantac PO 300 mg BID ALTA Administration Sodium Chloride 10 - 80 ml 02/27/18 03:03 02/27/18 09:42 Iv Flush IVF 10 ml PRN PRN Administration Flushing Discontinued Medications Generic Name Dose Route Start Last Admin Trade Name Sol PRN Reason Stop Dose Admin Aspirin 324 mg 02/27/18 04:20 02/27/18 04:52 Asa PO 02/27/18 04:21 324 mg O ONE Administration Clopidogrel Bisulfate 600 mg 02/27/18 05:49 02/27/18 06:15 Plavix PO 02/27/18 05:50 600 mg ONCE ONE Administration Enoxaparin Sodium 80 mg 02/27/18 05:11 02/27/18 05:40 Lovenox SQ 02/27/18 05:12 80 mg O ONE Administration Enoxaparin Sodium 80 mg 02/27/18 05:50 02/27/18 06:08 Lovenox 1 mg/kg (80 mg) Not Given SQ Q12H ALTA Enoxaparin Sodium 80 mg 02/27/18 06:15 Lovenox 1 mg/kg (80 mg) SQ Q12H [facility] Fentanyl 50 mcg 02/27/18 04:20 02/27/18 04:58 Fentanyl IVP 02/27/18 04:21 50 mcg O ONE Administration Sodium Chloride 500 mls @ 75 mls/hr 02/27/18 10:15 02/27/18 10:15 Normal Saline IV 02/27/18 10:30 Infused .Q6H40M ALTA Infusion Metoprolol Tartrate 25 mg 02/27/18 17:30 Lopressor PO BIDWM ALTA Non-Formulary Medication 75 mg 02/27/18 21:00 Amoxapine [Amoxapine] PO BID ALTA Pantoprazole Sodium 40 mg 02/27/18 05:50 02/27/18 06:11 Protonix Tab PO 02/27/18 05:51 Not Given O ONE Pantoprazole Sodium 40 mg 02/27/18 09:00 02/27/18 09:41 Protonix Iv IVP 40 mg DAILY ALTA Administration Pneumococcal 7-Valent Conj Vacc 0.5 ml 02/27/18 16:23 Prevnar 13 IM 02/27/18 16:24 .ONCE ONE Potassium Chloride 40 meq 02/27/18 04:22 02/27/18 04:54 K-Dur 20 Meq Tablet PO 02/27/18 04:23 40 meq O ONE Administration - Constitutional no acute distress - Routine HEENT Exam Head: Present: normocephalic, atraumatic Eye: Present: EOMI ENT: Present: mucous membranes moist - Routine Neck Exam Present: normal carotid upstroke. Absent: JVD, carotid bruit, lymphadenopathy, thyromegaly - Routine Chest/Breast/Axilla Exam Chest wall: Absent: tenderness - Routine Respiratory Exam Present: CTA bilaterally - Routine Cardiovascular Exam Present: RRR, no murmur, S4. Absent: rubs - Routine Abdominal Exam Present: soft, normoactive bowel sounds, non distended, non tender. Absent: organomegaly, mass - Routine Extremities Exam Present: no edema, pulses intact, normal capillary refill, vascular access (NL R radial access site w/o swelling d/c or redness). Absent: cyanosis, clubbing, extremity cold to touch - Routine Skin Exam Present: intact, dry, warm. Absent: cyanosis, erythema, pallor, mottling - Routine Neurological Exam Present: alert, oriented X3, CN II-XII intact, moving all extremities, hearing grossly intact, normal speech. Absent: altered mental status, hemineglect, facial asymmetry - Routine Psychiatric Exam Present: normal affect, cooperative Results 02/28/18 04:24 02/28/18 04:24 Cardiac Enzymes 02/27/18 02/27/18 Range/Units 12:19 17:33 Troponin I < 0.012 0.015 (0-0.12) ng/ml CBC 02/28/18 Range/Units 04:24 WBC 5.0 (4.5-11.0) T/MM3 RBC 4.47 L (4.50-5.90) M/MM3 Hgb 13.7 (13.5-17.5) GM/DL Hct 39.5 L (41-53) % Plt Count 227 (130-400) T/MM3 Neut # (Auto) 2.4 (1.8-7.7) T/MM3 Lymph # (Auto) 2.0 (1-4.8) T/MM3 [place] # (Auto) 0.4 (0-0.8) T/MM3 Eos # (Auto) 0.2 (0-0.5) T/MM3 Baso # (Auto) 0.0 (0-0.2) T/MM3 Comprehensive Metabolic Panel 02/28/18 Range/Units 04:24 Sodium 142 (134-144) MEQ/L Potassium 4.9 D (3.6-5) MEQ/L Chloride 106 (98-107) MEQ/L Carbon Dioxide 24 (22-30) MEQ/L BUN 14.0 (9-20) MG/DL Creatinine 0.7 L (0.8-1.5) mg/dL Glucose 87 (75-110) MG/DL Calcium 9.2 (8.4-10.2) MG/DL Intake and Output 02/27/18 02/28/18 02/28/18 22:59 06:59 14:59 Intake Total 1280.000 / 1280.000 786.667 / 786.667 370 / 370 Output Total 575 / 575 350 / 350 Balance 705.000 / 705.000 436.667 / 436.667 370 / 370 Intake: IV 800.000 / 800.000 786.667 / 786.667 370 / 370 1/2 NS with KCL 20mEq 1,000 ml 800.000 / 800.000 786.667 / 786.667 370 / 370 @ 100 mls/hr IV .Q10H ALTA Rx#: [id number] Oral 480 / 480 Output: Urine 575 / 575 350 / 350 Other: Urine Appearance Clear Clear Urine Color Pale Pale Yellow Yellow Urine Odor Normal Normal - Imaging and Cardiology Echo: report reviewed, image reviewed (echo w/o RWMA of LV , RV normal in size and contractility) Cardiac cath: report reviewed Holter: report reviewed (tele) EKG results: report reviewed - EKG Interpretation EKG: sinus rhythm, not changed from: (previous) Assessment and Plan - Assessment and Plan NSTEMI pleuritic /positional CP ,resolved ? focal pericarditis , no clinical significance , check ESR medical Rx for CAD, no changes ambulate and good for d/c form cardiac standpoint. outpt cardiac rahab and RTC 1 wk no NSAID Rx d/t dual anti PLT RX and long GI hx problem , risk > benefit hold Glucophage x 48-72 hrs Hospital Course Summary Disclaimer: The visit summary below is not to be considered part of the above Progress Note. Hospital Course: 02/27/18 Inpatient admission to [facility] CCU for treatment of NSTEMI. Anticipate greater than 2 midnights of care needed. Initiate ASA therapy. Start Lovenox. Consult Dr Chaney - anticipates cardiac cath for further evaluation. Will keep pt NPO for cath and hold metformin. ECHO secondary to NSTEMI Tobacco cessation information. IVF of 1/2NS with potassium to help hydration and correct electrolytes. Continue home medications, holding metformin due to cath. Monitor blood sugars due to DM. Care to return to Dr Sims at time of discharge from [facility].
--- NOTE | 2018-02-28 11:11 | Cardiac Catheterization Report ---
DATE 02/27/2018 PROCEDURE PERFORMED 1. Transradial left heart catheterization, LV gram, coronary angiogram. 2. Moderate conscious sedation, duration of approximately 45 minutes. INDICATIONS 37-year-old gentleman who is a diabetic and has a positive family history, presented with anterior chest pain with elevated troponin. Some of the chest pain description is atypical suggestive of pericarditis as well. See Consultation. He and his family were counseled on the indications, alternatives , risks and benefits of heart catheterization and they agreed to proceed. PREMEDICATION Versed and Fentanyl, total of 4 mg and 100 mcg, in order, were given. Also 500 mL fluid bolus. DESCRIPTION OF PROCEDURE The patient was brought to the cardiac cath laboratory, was visibly anxious and a little shaky and heart rate and blood pressure were up, so he received IV Metoprolol in addition to the IV sedation. Under sterile technique, I accessed the right wrist initially by injecting lidocaine 1% amount of 3 mL. I accessed the radial artery with an excellent blood flow, however the table wire would not advance, so pressure held manually to prevent hematoma. Then I went back up just a bit higher and accessed the radial artery this time with an excellent flow. The wire advanced easily without any resistance. I inserted a 6-Yi Slender sheath, introduced in place, side arm was aspirated and flushed. Intraarterial drug combo was given of nitroglycerin 300 mcg, heparin 3000 units and verapamil 5 mg along with a saline bolus 500 mL to prevent hypotension at this point. I used a long [place] catheter to perform the above-mentioned procedure. Procedure was well tolerated. There were no immediate complications. FINDINGS 1. HEMODYNAMICS: LVEDP was 14 mmHg, without any valvular or transvalvular pressure gradient present. 2. CORONARY ANGIOGRAM: Left main coronary artery is large and normal. The LAD is a large vessel, exhibits mild luminal irregularities in the mid LAD of about 30%. The diagonal branch exhibits ostial and proximal narrowing, appeared hazy on one view, estimated about 70-80% stenosis. This is possibly the culprit vessel. The left circumflex artery is a nondominant system that gives origin to multiple obtuse marginal branches. PLB branch appears free from any occlusive disease. Right coronary artery is a huge dominant vessel, gives origin to RPDA and RPLB branches and is free from any significant disease. Limited LV gram by hand injection shows normal wall motion, normal systolic function. Ejection fraction estimated at 70%. IMPRESSION 1. Mild coronary artery disease as described above, mid LAD 30% irregularity with plaque extending to the diagonal branch which exhibits ostial and proximal lesion 70-80%, best treated medically due to involvement of the ostium and the vessel size. 2. Dominant RCA. 3. Normal hemodynamics. 4. Normal LV systolic function, EF 70%. RECOMMENDATIONS Medical therapy. MTDD
[2018-02-28 13:28] VITALS: RESP 23
--- NOTE | 2018-02-28 14:59 | Progress Note ---
- Date 02/28/18 Subjective: F/U: NSTEMI, CAD Doing well today. Breathing well. Not having chest pressure or pain. Slight ab fullness. Eating well. Passing flatus. No f/c. Objective Vital signs: Temperature 98.1 F 02/28/18 07:13 Pulse Rate 88 02/28/18 12:00 Respiratory Rate 23 02/28/18 12:00 Blood Pressure 113/66 02/28/18 11:00 Pulse Oximetry 97 02/28/18 12:00 Height/Weight/BMI: Height 1.75 m Weight 77.3 kg Body Mass Index 25.1 - Constitutional Present: well nourished, well developed, average body habitus, cooperative - Routine HEENT Exam Head: Present: normocephalic, atraumatic Eye: Present: EOMI, PERRL ENT: Present: mucous membranes moist - Routine Respiratory Exam Present: CTA bilaterally. Absent: rales, respiratory distress, rhonchi, wheezes , crackles - Routine Cardiovascular Exam Present: RRR, no murmur - Routine Abdominal Exam Present: soft, normoactive bowel sounds, non distended, non tender. Absent: guarding - Routine Extremities Exam Present: no edema, pulses intact. Absent: cyanosis, clubbing - Routine Musculoskeletal Exam Musculoskeletal: Present: no clubbing or cyanosis, normal strength - Routine Skin Exam Present: intact, dry, warm - Routine Neurological Exam Present: alert, oriented X3, CN II-XII intact, moving all extremities, vision grossly intact, hearing grossly intact, normal speech. Absent: motor deficit, altered mental status - Routine Psychiatric Exam Present: normal affect, cooperative Results - Labs CBC & Chem 7: 02/28/18 04:24 02/28/18 04:24 Assessment and Plan (1) NSTEMI (non-ST elevated myocardial infarction) Current visit: Yes Status: Acute (2) DM type 2 (diabetes mellitus, type 2) Current visit: Yes Status: Acute (3) Dyslipidemia Current visit: Yes Status: Acute Assessment and Plan: Assessment Elevated troponin - NSTEMI Hypernatremia (POA) Hypokalemia (POA) Type II DM HTN HDL Tobacco dependency Autism Plan Doing well today. Renal status stable. Sodium and potassium normalized. Blood sugars and blood pressures stable. Tolerating medications. Eating well. Breathing well. Will discharge to home in stable conditions. 2000 [address] ADA low sodium/Heart Healthy diet. Activities as per cardiology. Medications changes include ASA 81mg and Plavix 75mg daily. Lipitor 40mg nightly. Continue Toprol XK 50mg daily. Hold Metformin due to IV dye - can restart am of 03/02/18. Stop Mobic due to use of ASA/Plavix to decrease risk of GI bleeding. Continue chronic home medications. Outpatient cardiac rehabilitation. F/U with Dr Sims in 1 week for medical evaluation. F/U with Dr Chaney in 2 weeks for cardiac evaluation. See orders for details. Case discussed with CCU nursing and CM. Time spent with patient care and discharge greater than 30 minutes. DVT Prophylaxis: SCD's, Lovenox - Physician Narrative Physician: Gildardo Mayes MD Narrative: Date: 02/28/18 Time: 8059 Hospital Course Summary Disclaimer: The visit summary below is not to be considered part of the above Progress Note. Hospital Course: 02/27/18 [place]patient [place] [facility] [place] for treatment of NSTEMI. Anticipate greater than 2 midnights of care needed. Initiate ASA therapy. Start Lovenox. Consult Dr Chaney - anticipates cardiac cath for further evaluation. Will keep pt NPO for cath and hold metformin. ECHO secondary to NSTEMI Tobacco cessation information. IVF of 1/2NS with potassium to help hydration and correct electrolytes. Continue home medications, holding metformin due to cath. Monitor blood sugars due to DM. Care to return to Dr Sims at time of discharge from [facility] Chaney evaluated patient: Treatment for acute [place] and Plavix Beta blockers statin full dose dose Lovenox started in ER. Counseled the patient about risks/benefits/alternatives of a heart catheter. Risk of complications hematoma vascular damage and allergy renal failure [place] stroke or . Agree to proceed. Dr. Monae agreed to be on standby for intervention Echocardiogram reviewed on the spot Underwent cardiac cath which revealed: Mild coronary artery disease, mid LAD 30% irregularity with plaque extending to the diagonal branch which exhibits ostial and proximal lesion 70-80%. Best treated medically due to involvement of the ostium and the vessel size. 02/28/18 Doing well today. Renal status stable. Sodium and potassium normalized. Blood sugars and blood pressures stable. Tolerating medications. Eating well. Breathing well. Will discharge to home in stable conditions. [address] ADA low sodium/Heart Healthy diet. Activities as per cardiology. Medications changes include ASA 81mg and Plavix 75mg daily. Lipitor 40mg nightly. Continue Toprol XK 50mg daily. Hold Metformin due to IV dye - can restart am of 03/03/18. Stop Mobic due to use of ASA/Plavix to decrease risk of GI bleeding. Continue chronic home medications. Outpatient cardiac rehabilitation. F/U with Dr Sims in 1 week for medical evaluation. F/U with Dr Chaney in 2 weeks for cardiac evaluation. See orders for details.
--- NOTE | 2018-02-28 15:25 | Discharge Summary ---
Discharge Information Date of admission: 02/27/18 05:25 Anticipated date of discharge: 02/28/18 Attending Physician: Gildardo Mayes MD Primary care physician: Yadiel Sims MD Consults: Physician Consult: Sharyn Chaney Reason For Exam: Elevated Troponin with Chest Pain Outpt Cardiac Rehab Consult - Discharge Diagnosis (1) NSTEMI (non-ST elevated myocardial infarction) Status: Acute (2) DM type 2 (diabetes mellitus, type 2) Status: Acute (3) Dyslipidemia Status: Acute Discharge diagnosis Elevated troponin - NSTEMI Associated conditions and complications New diagnosis of ASCAD - medically manageable disease found Hypernatremia (POA) - resolved Hypokalemia (POA) - resolved Type II DM HTN HDL Tobacco dependency Autism - Procedures Procedures: DATE: 02/27/2018 PROCEDURE PERFORMED 1. Transradial left heart catheterization, LV gram, coronary angiogram. 2. Moderate conscious sedation, duration of approximately 45 minutes. INDICATIONS 37-year-old gentleman who is a diabetic and has a positive family history, presented with anterior chest pain with elevated troponin. Some of the chest pain description is atypical suggestive of pericarditis as well. See Consultation. He and his family were counseled on the indications, alternatives , risks and benefits of heart catheterization and they agreed to proceed. PREMEDICATION Versed and Fentanyl, total of 4 mg and 100 mcg, in order, were given. Also 500 mL fluid bolus. DESCRIPTION OF PROCEDURE The patient was brought to the cardiac cath laboratory, was visibly anxious and a little shaky and heart rate and blood pressure were up, so he received IV Metoprolol in addition to the IV sedation. Under sterile technique, I accessed the right wrist initially by injecting lidocaine 1% amount of 3 mL. I accessed the radial artery with an excellent blood flow, however the table wire would not advance, so pressure held manually to prevent hematoma. Then I went back up just a bit higher and accessed the radial artery this time with an excellent flow. The wire advanced easily without any resistance. I inserted a 6-[place] Slender sheath, introduced in place, side arm was aspirated and flushed. Intraarterial drug combo was given of nitroglycerin 300 mcg, heparin 3000 units and verapamil 5 mg along with a saline bolus 500 mL to prevent hypotension at this point. I used a long [place] catheter to perform the above-mentioned procedure. Procedure was well tolerated. There were no immediate complications. FINDINGS 1. HEMODYNAMICS: LVEDP was 14 mmHg, without any valvular or transvalvular pressure gradient present. 2. CORONARY ANGIOGRAM: Left main coronary artery is large and normal. The LAD is a large vessel, exhibits mild luminal irregularities in the mid LAD of about 30%. The diagonal branch exhibits ostial and proximal narrowing, appeared hazy on one view, estimated about 70-80% stenosis. This is possibly the culprit vessel. The left circumflex artery is a nondominant system that gives origin to multiple obtuse marginal branches. PLB branch appears free from any occlusive disease. Right coronary artery is a huge dominant vessel, gives origin to RPDA and RPLB branches and is free from any significant disease. Limited LV gram by hand injection shows normal wall motion, normal systolic function. Ejection fraction estimated at 70%. IMPRESSION 1. Mild coronary artery disease as described above, mid LAD 30% irregularity with plaque extending to the diagonal branch which exhibits ostial and proximal lesion 70-80%, best treated medically due to involvement of the ostium and the vessel size. 2. Dominant RCA. 3. Normal hemodynamics. 4. Normal LV systolic function, EF 70%. - Laboratory Labs: Admit Lab 02/27/18 03:32 WBC 5.1 Hgb 14.5 Hct 41.2 MCV 87.7 Plt Count 227 Neut % (Auto) 43.5 Lymph % (Auto) 44.0 [place] % (Auto) 8.3 Eos % (Auto) 3.4 Baso % (Auto) 0.6 Admit Lab 02/27/18 03:32 Sodium 147 H Potassium 3.4 L Chloride 105 Carbon Dioxide 29 Anion Gap 13 BUN 16.0 Creatinine 0.8 GFR Calculation 110 BUN/Creatinine Ratio 20 Glucose 103 Calculated Osmolality 283 H Calcium 9.5 Total Bilirubin 0.40 AST 32 ALT 40 Alkaline Phosphatase 49 Troponin I 0.249 H Total Protein 7.3 Albumin 4.8 Globulin 2.5 Albumin/Globulin Ratio 1.9 Lipase 117 Lipid Profile 02/27/18 06:08 Triglycerides 184 H Cholesterol 109 L LDL Cholesterol, Calc 34.2 L VLDL Cholesterol 36.8 H HDL Cholesterol 38 L Cholesterol/HDL Ratio 2.9 02/28/18 04:24 02/28/18 04:24 - Radiology Radiology: Date of Exam: 02/27/18 Type of Exam: XR chest 1V Findings: There is a hiatal hernia in the middle mediastinum with an air-fluid level. Heart size is normal. The lungs are clear. There is no focal opacity to suggest atelectasis or pneumonia. No mediastinal or hilar adenopathy. No pleural effusion. There is no significant tortuosity of the descending thoracic aorta. There is mild degenerative disc disease of the thoracic spine. IMPRESSION: No acute process. Date of Exam: 02/27/18 Type of Exam: US ECHO Doppler complete FINDINGS 1. CARDIAC CHAMBERS. All cardiac chamber measurements are normal. Aortic root diameter is normal. 2. LEFT VENTRICLE. Analysis reveals wall thickness visually appears to be within upper-normal range. Measurement on 2-D--of the posterior wall were 0.93 cm, septal wall 1.08 cm. Wall motion analysis is normal. LV systolic function is normal. No significant regional wall motion abnormality was identified. Ejection fraction was normal, measured 74%. Diastolic function assessment is normal. 3. VALVES. Aortic valve exhibits very minimal sclerotic changes. Valve excursion is normal. All other three valves exhibit normal structure and motion. Specifically, the pulmonic valve leaflets appear structurally normal without any thickening and exhibit normal opening and no post-stenotic dilatation present. 4. DOPPLER. Shows trace regurgitation involving all four valves, none of hemodynamic significance. Systolic PA pressure is estimated at 28 mmHg per Bernoulli equation. The velocity at the pulmonic valve 1.47 m/sec with a maximum gradient of 9 mmHg is borderline increased but, correlating with the 2- D imaging, is not well to represent any clinically significant pulmonic valve stenosis. Subcostal views were technically difficult and inadequate to assess the pericardial space well. However, appears to be only physiologic pericardial effusion best appreciated on the parasternal long axis views. IMPRESSION 1. Normal cardiac chamber size. 2. Normal LV systolic function, EF of 74%, without significant regional wall motion abnormality. 3. No significant valvular dysfunction. 4. Borderline increased flow velocity at the pulmonic valve level without significant pulmonic stenosis. 5. Physiologic pericardial effusion is present. History of Present Illness HPI: This is a 37 y/o male with a history of DM1, dyslipidemia, HTN and autism. The pateint has been experiencing intermittent chest pain for the past month. The patient describes these pains as not provoked. substernal pressure, non radiating, mild dyspnea, no nausea/vomiting. The patent presented to [facility] earlier yesterday and 2 enz and ekg normal. discharged. His sx persisted and he presented to [facility] where first enz was positive. EKG continued to be quiet. Pain resolved with fentanyl. Care was discussed with Cardiology who r/c local admission as long as pain free. Lovenox started. Cardiology r/c Plavix as well . Note that his brother one year ago and post mortem demonstrated 2 vessel CAD. For complete details of the H&P refer to that document. Objective Vital signs: Temperature 98.1 F 02/28/18 07:13 Pulse Rate 88 02/28/18 12:00 Respiratory Rate 23 02/28/18 12:00 Blood Pressure 113/66 02/28/18 11:00 Pulse Oximetry 97 02/28/18 15:07 Height/Weight/BMI: Height 1.75 m Weight 77.3 kg Body Mass Index 25.1 Hospital Course This is a general summary of the patient's hospital course. For more details refer to the complete medical record. Hospital course: 02/27/18 Inpatient admission to [facility] CCU for treatment of NSTEMI. Anticipate greater than 2 midnights of care needed. Initiate ASA therapy. Start Lovenox. Consult Dr Chaney - anticipates cardiac cath for further evaluation. Will keep pt NPO for cath and hold metformin. ECHO secondary to NSTEMI. Tobacco cessation information. IVF of 1/2NS with potassium to help hydration and correct electrolytes. Continue home medications, holding metformin due to cath. Monitor blood sugars due to DM. Care to return to Dr Sims at time of discharge from [facility]. Dr Chaney evaluated patient: Treatment for acute CA and Plavix Beta blockers statin full dose dose Lovenox started in ER. Counseled the patient about risks/benefits/alternatives of a heart catheter. Risk of complications hematoma vascular damage and allergy renal failure CA stroke or . Agree to proceed. Dr. Monae agreed to be on standby for intervention Echocardiogram reviewed on the spot Underwent cardiac cath which revealed: Mild coronary artery disease, mid LAD 30% irregularity with plaque extending to the diagonal branch which exhibits ostial and proximal lesion 70-80%. Best treated medically due to involvement of the ostium and the vessel size. 02/28/18 Doing well today. Renal status stable. Sodium and potassium normalized. Blood sugars and blood pressures stable. Tolerating medications. Eating well. Breathing well. Will discharge to home in stable conditions. [address] low sodium/Heart Healthy diet. Activities as per cardiology. Medications changes include ASA 81mg and Plavix 75mg daily. Lipitor 40mg nightly. Continue Toprol XK 50mg daily. Hold Metformin due to IV dye - can restart am of 03/03/18. Stop Mobic due to use of ASA/Plavix to decrease risk of GI bleeding. Continue chronic home medications. Outpatient cardiac rehabilitation. F/U with Dr Sims in 1 week for medical evaluation. F/U with Dr Chaney in 2 weeks for cardiac evaluation. See orders for details. Time spent with patient: discharge greater than 30 minutes Discharge Plan - Discharge Disposition Discharge Date: 02/25/17 Disposition: Discharged Home,Parent Care *Condition: Improved Reason For Visit (Visit label in EMR): nstemi - Discharge Medications *Discharge Medications: New Aspirin *EC* [Ecotrin] 81 mg PO DAILY tablet Atorvastatin [Lipitor] 40 mg PO HS #30 tab Clopidogrel [Plavix] 75 mg PO DAILY #30 tab Continue Esomeprazole Magnesium [Nexium] 40 mg PO DAILY #0 Atomoxetine HCl [Strattera] 80 mg PO HS #0 Quetiapine Fumarate [Seroquel Xr] 200 mg PO HS #0 Fexofenadine [Dariana] 60 mg PO DAILY Melatonin 3 mg PO HS Metoprolol Succinate 50 mg PO DAILY raNITIdine HCl [Zantac] 300 mg PO BID #0 Dicyclomine HCl 20 mg PO BID #0 Metformin [Glucophage] 500 mg PO BID Remeron (mirtazapine) 30 mg tablet 30 mg PO HS tab Discontinued Meloxicam 15 mg PO DAILY - Discharge Packet/Instructions *Diet: [address] Cardiac *Activity: do not raise more than 5 Lb. and for 2 week. no driving for 72 hrs *Pain Management/Treatment: Tylenol 650 mg every 6 hrs as needed *Wound Care: keep site dry ,clean and open to air Additional Instructions: Hold Metformin - may restart morning of 03/02/18 *Expected Signs/Symptoms: mild discomfort *Notify Physician if: discharge, redness or severe pain at the site , severe numbness and tingling in the hand or fingers turning cold or pale . call 911 if severe or sudden swelling , brisk or pulsating bleed from the right wrist. severe numbness and tingling in the leg or toes . leg or foot turning cold or very pale. *During Business Hours Contact: *After Business Hours Contact: *Pending Lab/Results: No Pending Lab - Referrals/Follow Up *Referrals/Follow Up: Sharyn Chaney MD [Physician] - 2 Weeks Yadiel Sims MD [Primary Care Provider] - 1 Week (Hospital follow up for NSTEMI - Medical management. Outpt cardiac rehab to start. Mobic stopped due to use of ASA/Plavix. ) - Patient Handouts - Dismissal Complete Discharge Instructions are:: Complete Physician Narrative - Narrative Physician: Gildardo Mayes MD Attestation Narrative: Date: 02/28/18 Time: 1521 I have independently interviewed and examined patient prior to discharge. See my progress not for details. Medically stable for discharge to home.
[2018-02-28 15:59] VITALS: BP 119/66; PULSE 90
[2018-02-28] MEDS ORDERED: MIRTAZAPINE 30 MG TABLET PO SCH (21:00)
== END 2018-02-28 16:40 | disposition home or self-care (01) | DRG 281 ==
LOC: ED 02:31 → SUATTDRO 05:25 → EDHOLD 05:25 → CCU 05:50
PROVIDERS: ADMIT Emergency Medicine; ATTEND Hospitalist

== ENCOUNTER 2018-03-01 16:39 | Observation (INO) ==
[2018-03-01 17:03] VITALS: BMI 24.1
--- NOTE | 2018-03-01 17:38 | History & Physical Report ---
History of Present Illness Date: 03/01/18 Chief complaint: Chest pain, anxiety HPI: Patient has a 37-year-old male who was recently admitted under the hospitalist services for non-STEMI. Patient was followed by Dr. Chaney and underwent a cardiac catheter on 02/27/18. He was found to have mild coronary artery disease with 30% LAD plaque along with proximal lesion of 70-80%. It was recommended that he be treated with medical management. Patient was discharged yesterday 02/28. Today he presented to [place] to be evaluated by his psychiatrist. At that time he began to have chest pain and reports that his pulse was elevated over 100. Dr. Chaney was contacted and ordered an outpatient troponin which was found to be negative. The hospitalists were contacted and accepted patient for direct admission for further evaluation and treatment. On arrival to [facility] patient was found to be afebrile, pulse 97, blood pressure 125/80, 98% on room air. He continues to report mild chest pain and wonders if this is from being off all of his anti-anxiety medications for several days during his hospitalization. Review of Systems All systems PM: 10-point ROS was reviewed, no additional remarkable complaints except Past Medical History Medical History Updates: Hypertension. Type II diabetes. Dyslipidemia. Anxiety. Autism. Hx ARF secondary to dehydration ([employer] >5) Surgical History: 1. Right inguinal herniorrhaphy and hydrocelectomy on by Dr. Mckeon at [facility] at [place], [place]. Postoperative diagnoses were right indirect inguinal hernia and right communicating scrotal hydrocele. 2. Esophagogastroduodenoscopy with biopsies at the distal esophagus and colonoscopy with random biopsies on 06/20/[address] Godwin at [facility] at [place], [place]. 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 Biopsies performed at the gastroesophageal junction showed focal intestinal metaplasia. Random biopsies performed throughout the colon showed edema and mild nonspecific chronic inflammation. 3. Left knee arthroscopy by Dr. Carvajal at [facility]. 4. Laparoscopic Charbel fundoplication in [address] Godwin at [facility] at [place], [place]. 5. Laparoscopic appendectomy on 09/14/[address] Godwin at [facility] at [place], [place]. The pathology report on the appendix showed fecal impaction. There was no acute appendicitis. Discharge diagnoses for this hospitalization were right lower quadrant abdominal pain and autism. 6. Esophagogastroduodenoscopy with biopsies from distal esophagus on 07/08/[address] Godwin at [facility] at [place], [place]. Postoperative diagnoses were history of epigastric abdominal pain, history of right upper quadrant abdominal pain, history of Esparza's metaplasia, small hiatal hernia and ongoing endoscopic evidence of Esparza's metaplasia. Pathology report on biopsies of the distal esophagus did show Esparza's esophagitis. There was no evidence of dysplasia. 7. Arthroscopy of the left knee with reconstruction of medial capsular ligament to the patella on 08/08/[address] Carvajal at [facility] at [place], [place]. 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 8. Laparoscopic cholecystectomy with intraoperative cholangiogram on 04/07/[address] Montes at [place], [place]. Pathology report diagnoses on the gallbladder were acute and chronic cholecystitis. 9. Esophagogastroduodenoscopy with multiple biopsies of Esparza's esophagus on 05/20/[address] Montes at [facility] at [place], [place]. Postoperative diagnoses were Esparza's esophagus, status post Charbel fundoplication in 2006 and sliding hiatal hernia. Pathology report on these biopsies showed Esparza's esophagitis. Biopsies were negative for dysplasia. 10. Esophagogastroduodenoscopy with biopsies on 06/29/[address] Sid Quevedo at the [facility] at [place], [place]. Postoperative diagnoses were Esparza's esophagus and moderate sized hiatal hernia. Biopsies performed at the esophagus showed Esparza's esophagus changes. Biopsies were indefinite for dysplasia. 11. Esophagogastroduodenoscopy with biopsies at the distal esophagus and colonoscopy on 07/14/[address] Sid Quevedo at the [facility] at [place], [place]. Postoperative diagnoses were Esparza's esophagus, small hiatal hernia and unremarkable colonoscopic exam. Biopsies of the distal esophagus showed chronic esophagitis with intestinal metaplasia. There was no dysplasia. 12. Excision of foreign body from left lateral patellar area on 01/13/[address] Carvajal at [place], [place]. Postoperative diagnosis was foreign body at left lateral patellar region. 13. Esophagogastroduodenoscopy with biopsies on 07/06/[address] Gaines at the [facility] at [place], [place]. Postoperative diagnoses were Esparza's esophagus and large sliding hiatal hernia. Biopsies of the distal esophagus showed Esparza's esophagus. Biopsies were negative for dysplasia. . 14. Endoscopic ultrasound examination of the pancreas and the bile duct on 09/27/[address] Massey at [facility] at [place], [place]. One postoperative diagnosis was no obvious changes of chronic pancreatitis seen in the pancreatic parenchyma. Another postoperative diagnosis was nondilated main pancreatic duct and normal nondilated common bile duct. 15. Esophagogastroduodenoscopy with biopsies of the distal esophagus on 08/28/[address] Montes at [facility] at [place], [place]. Postoperative diagnoses were Esparza's esophagus, gastroesophageal reflux disease and recurrence of a sliding hiatal hernia. Biopsies of the distal esophagus showed Esparza's esophagus changes. There was no dysplasia. 16. Esophagogastroduodenoscopy with biopsies on 09/09/[address] Mckeon at [facility] at [place], [place]. Postoperative diagnoses were gastroesophageal reflux disease, Esparza's esophagus, status post laparoscopic Charbel fundoplication, large recurrent sliding hiatal hernia, gastric polyps and possible gastritis. Biopsies of the distal esophagus showed Esparza's esophagus with no dysplasia. Some of the gastric polyps were removed and found to be benign hyperplastic gastric polyps. Biopsies of the cardia of the stomach showed mild patchy chronic gastritis. COMFORT test study at this procedure was negative. 17. Heart cath- 02/27/18- Shiv- Mild CAD- recommend medication management. . The patient has had other previous hospitalizations as follows: 1. Hospitalized from 06/21/08 to 06/22/08 at [place], [place]. Admission diagnoses were alcohol intoxication, history of depression, and gastroesophageal reflux disease. Family History: Little Brother- recently related to medication reaction, opiates plus antipsychotics. On autopsy he was found to have coronary artery disease Parents- with heart problems Family History: As Above - Social History Smoking status: Current every day smoker Substance use type: does not use Alcohol intake frequency: does not drink Housing: house Current residence: Apartment/Private Home Social history: PCP Dr Sims Medications Home Medications Medication Instructions Recorded Confirmed Type Esomeprazole Magnesium [Nexium] 40 mg PO DAILY #0 05/20/09 03/01/18 History raNITIdine HCl [Zantac] 300 mg PO BID #0 08/27/13 03/01/18 History Atomoxetine HCl [Strattera] 80 mg PO HS #0 06/27/16 03/01/18 History Dicyclomine HCl 20 mg PO BID #0 06/27/16 03/01/18 History Quetiapine Fumarate [Seroquel Xr] 200 mg PO HS #0 06/27/16 03/01/18 History Fexofenadine [Dariana] 60 mg PO DAILY 04/25/17 03/01/18 History Melatonin 3 mg PO HS 04/25/17 03/01/18 History Metformin [Glucophage] 500 mg PO BID 04/25/17 03/01/18 History Metoprolol Succinate 50 mg PO DAILY 04/25/17 03/01/18 History Remeron (mirtazapine) 30 mg tablet 30 mg PO HS tab 08/17/17 03/01/18 History Aspirin *EC* [Ecotrin] 81 mg PO DAILY tab 02/28/18 03/01/18 Rx Atorvastatin [Lipitor] 40 mg PO HS #30 tab 02/28/18 03/01/18 Rx Clopidogrel [Plavix] 75 mg PO DAILY #30 tab 02/28/18 03/01/18 Rx Allergies Allergy/AdvReac Type Severity Reaction Status Date / Time propofol Allergy Intermediate ARM SWELLS Verified 03/01/18 17:05 AND CASTILLO nitrofurantoin Allergy Mild SHAKING Verified 03/01/18 17:05 Penicillins Allergy Unknown RASH Verified 03/01/18 17:05 pertussis vaccine,fluid Allergy Unknown SEIZURE Verified 03/01/18 17:05 pantoprazole [From Protonix] AdvReac Intermediate Nausea and Verified 03/01/18 17:05 Vomiting ORANGE OIL AdvReac Unknown SEVERE N/V Uncoded 03/01/18 17:05 SCENTED SOAPS AdvReac Unknown SEVERE Uncoded 03/01/18 17:05 ITCHING Exam Vital Signs: Temperature 98.6 F 03/01/18 16:45 Pulse Rate 97 03/01/18 16:45 Respiratory Rate 18 03/01/18 16:45 Blood Pressure 125/81 03/01/18 16:45 Pulse Oximetry 98 03/01/18 16:45 Height/Weight/BMI: Height 1.75 m Weight 74.2 kg Body Mass Index 24.1 - Constitutional Present: no acute distress, well nourished, well developed - Routine HEENT Exam Eye: Present: EOMI ENT: Present: mucous membranes moist, dentition normal - Routine Respiratory Exam Present: CTA bilaterally. Absent: wheezes - Routine Cardiovascular Exam Present: RRR, S1, S2. Absent: murmur - Routine Abdominal Exam Present: soft, normoactive bowel sounds, non distended. Absent: tenderness - Routine Extremities Exam Present: normal capillary refill - Routine Skin Exam Present: dry, warm - Routine Neurological Exam Present: alert, oriented X3, CN II-XII intact - Routine Psychiatric Exam Present: normal affect Results - Labs CBC & Chem 7: 03/01/18 17:41 03/01/18 17:41 Assessment and Plan (1) Chest pain Current visit: Yes Status: Acute Assessment and Plan: Impression Chest pain ASCAD- medically managed disease Type II diabetes Anxiety Dyslipidemia Autism Tobacco dependence Plan Admit patient outpatient observation under the care of Dr. Perea for chest pain Patient did have an outpatient. Troponin done earlier this afternoon that was undetectable. We will recheck troponin and EKG on admission. Obtain D-dimer to rule out thrombus. This is positive, will need to obtain CT of the chest. Wells Criteria- 3.0- Moderate risk for PE Patient is to continue to hold metformin given administration of dye. We will monitor Accu-Cheks and add sliding scale insulin as needed. Continue on patient's psychiatric medications including Seroquel, Remeron. Will discuss Strattera use with attending, given that that may produce tachycardia. SCDs to bilateral lower extremity for DVT prophylaxis Encourage tobacco cessation Will discuss further orders and plan of care with attending, Dr. Perea At time of discharge medical care will return to primary care provider, Dr Sims DVT Prophylaxis: SCD's GI Prophylaxis: other Resuscitation Status: Full Code - Physician Narrative Narrative: Date: 03/01/18 Time: 1834 S: Pt reports his cp is on and off and has been happening for many days and is currently having it but its better. Denies any n/v/d, f/c or sob. Pt is on room air and is comfortable. O: Gen: alert and oriented Cards: RRR without murmurs A/P: CP is likely anxiety related, EKG and trop so far have been unremarkable, pt also had trop and EKG in office which was unremarkable per . Discussed case with and he agrees that this is likely anxiety. He recommended increasing metoprolol to 100mg daily. D-dimer is negative and pt is on room air so PE is very unlikely and we will not do CTA. Will trend trop and monitor overnight for cp rule out and plan for discharge tomorrow. Hospital Course Summary Disclaimer: The visit summary below is not to be considered part of the above Progress Note. Hospital Course: Impression Chest pain ASCAD- medically managed disease Type II diabetes Anxiety Dyslipidemia Autism Tobacco dependence Plan Admit patient outpatient observation under the care of Dr. Perea for chest pain Patient did have an outpatient. Troponin done earlier this afternoon that was undetectable. We will recheck troponin and EKG on admission. Obtain D-dimer to rule out thrombus. This is positive, will need to obtain CT of the chest. Wells Criteria- 3.0- Moderate risk for PE Patient is to continue to hold metformin given administration of dye. We will monitor Accu-Cheks and add sliding scale insulin as needed. Continue on patient's psychiatric medications including Seroquel, Remeron. Will discuss Strattera use with attending, given that that may produce tachycardia. SCDs to bilateral lower extremity for DVT prophylaxis Encourage tobacco cessation Will discuss further orders and plan of care with attending, Dr. Perea At time of discharge medical care will return to primary care provider, Dr Sims
[2018-03-01] MEDS ORDERED: INSULIN ASPART 100unit/ml INJECTION SQ PRN (17:58)
[2018-03-01] MEDS ORDERED: METOPROLOL SUCCINATE 50 MG PO SCH (18:30)
[2018-03-01] MEDS: CLOPIDOGREL 75 MG TABLET PO SCH (18:50)
[2018-03-01] MEDS ORDERED: QUETIAPINE 200 MG PO SCH (21:00)
[2018-03-01] MEDS ORDERED: ATOMOXETINE 80 MG PO SCH (21:00)
[2018-03-01] MEDS ORDERED: MELATONIN 3 MG PO SCH (21:00)
[2018-03-01] MEDS ORDERED: ATORVASTATIN 40 MG TABLET PO SCH (21:00)
[2018-03-01] MEDS ORDERED: MIRTAZAPINE 30 MG TABLET PO SCH ×2 (21:00→21:27)
[2018-03-01] MEDS: ASPIRIN *EC* 81 MG TABLET PO SCH (21:25)
[2018-03-01] MEDS: POM RANITIDINE 150 MG TABLET PO SCH (21:34)
[2018-03-02 00:48] VITALS: O2SAT 95
[2018-03-02] MEDS ORDERED: DICYCLOMINE 10 MG PO SCH (06:30)
[2018-03-02] MEDS ORDERED: [UNRECOGNIZED DRUG - OTHER] PO SCH (06:30)
[2018-03-02] MEDS ORDERED: ESOMEPRAZOLE 40 MG PO SCH (06:30)
[2018-03-02 08:12] VITALS: BP 116/69; RESP 20; TEMP 97.4
[2018-03-02] MEDS: CLOPIDOGREL 75 MG TABLET PO SCH (08:17)
[2018-03-02] MEDS: ASPIRIN *EC* 81 MG TABLET PO SCH (08:17)
[2018-03-02] MEDS: POM RANITIDINE 150 MG TABLET PO SCH (08:18)
[2018-03-02] MEDS ORDERED: FEXOFENADINE 60 MG TABLET PO SCH (09:00)
[2018-03-02] MEDS ORDERED: METOPROLOL SUCCINATE 50 MG PO SCH (09:00)
[2018-03-02 10:18] VITALS: PULSE 102
--- NOTE | 2018-03-02 12:03 | Discharge Summary ---
Discharge Information Date of admission: 03/01/18 17:22 Anticipated date of discharge: 03/02/18 Attending Physician: Nessa Perea MD Primary care physician: Yadiel Sims MD Consults: none - Discharge Diagnosis (1) Chest pain Status: Acute Chest pain ASCAD- medically managed disease Type II diabetes Anxiety Dyslipidemia Autism Tobacco dependence - Procedures Procedures: None - Laboratory Labs: 03/01/18 17:41 03/01/18 17:41 - Microbiology N/a - Radiology Radiology: N/A - Pathology none History of Present Illness HPI: Patient has a 37-year-old male who was recently admitted under the hospitalist services for non-STEMI. Patient was followed by Dr. Chaney and underwent a cardiac catheter on 02/27/18. He was found to have mild coronary artery disease with 30% LAD plaque along with proximal lesion of 70-80%. It was recommended that he be treated with medical management. Patient was discharged yesterday 02/28. Today he presented to [place] to be evaluated by his psychiatrist. At that time he began to have chest pain and reports that his pulse was elevated over 100. Dr. Chaney was contacted and ordered an outpatient troponin which was found to be negative. The hospitalists were contacted and accepted patient for direct admission for further evaluation and treatment. On arrival to [facility] patient was found to be afebrile, pulse 97, blood pressure 125/80, 98% on room air. He continues to report mild chest pain and wonders if this is from being off all of his anti-anxiety medications for several days during his hospitalization. Objective Vital signs: Temperature 97.4 F 03/02/18 08:00 Pulse Rate 102 H 03/02/18 08:00 Respiratory Rate 20 03/02/18 08:00 Blood Pressure 116/69 03/02/18 08:00 Pulse Oximetry 95 03/02/18 08:00 Height/Weight/BMI: Height 1.75 m Weight 72.8 kg Body Mass Index 24.1 Hospital Course This is a general summary of the patient's hospital course. For more details refer to the complete medical record. Hospital course: Impression Chest pain ASCAD- medically managed disease Type II diabetes Anxiety Dyslipidemia Autism Tobacco dependence Plan Admit patient outpatient observation under the care of Dr. Perea for chest pain Patient did have an outpatient. Troponin done earlier this afternoon that was undetectable. We will recheck troponin and EKG on admission. Obtain D-dimer to rule out thrombus. This is positive, will need to obtain CT of the chest. Wells Criteria- 3.0- Moderate risk for PE Patient is to continue to hold metformin given administration of dye. We will monitor Accu-Cheks and add sliding scale insulin as needed. Continue on patient's psychiatric medications including Seroquel, Remeron. Will discuss Strattera use with attending, given that that may produce tachycardia. SCDs to bilateral lower extremity for DVT prophylaxis Encourage tobacco cessation Will discuss further orders and plan of care with attending, Dr. Perea At time of discharge medical care will return to primary care provider, Dr Sims 03/02/18- Discharge Patient is seen and examined prior to discharge by Dr. Perea. Serial troponins were all negative. Patient will be discharged on previous home medications, however beta estee will be increased to Metoprolol 100mg daily. He is instructed to follow-up with primary care provider, Dr. Sims in 1 week. He is also instructed to follow-up with home demonstration agent, Dr. Chaney as previously instructed. Stable for discharge Resuscitation Status: Full Code Discharge Plan - Discharge Disposition Discharge Date: 03/02/18 Disposition: 01 Discharged Home, Self-Care *Condition: Stable Reason For Visit (Visit label in EMR): Chest pain - Discharge Medications *Discharge Medications: New Metoprolol Succinate (XL) [Toprol Xl] 100 mg PO DAILY tab Continue Esomeprazole Magnesium [Nexium] 40 mg PO DAILY #0 Atomoxetine HCl [Strattera] 80 mg PO HS #0 Quetiapine Fumarate [Seroquel Xr] 200 mg PO HS #0 Fexofenadine [Dariana] 60 mg PO DAILY Melatonin 6 mg PO HS Aspirin *EC* [Ecotrin] 81 mg PO DAILY tab Atorvastatin [Lipitor] 40 mg PO HS #30 tab Clopidogrel [Plavix] 75 mg PO DAILY #30 tab Mirtazapine [Remeron] 45 mg PO HS raNITIdine HCl [Zantac] 300 mg PO BID #0 Dicyclomine HCl 20 mg PO BID #0 Metformin [Glucophage] 500 mg PO BID Discontinued Metoprolol Succinate 50 mg PO DAILY - Discharge Packet/Instructions *Diet: ADA CC diet *Activity: usual activity *Pain Management/Treatment: Tylenol as needed *Wound Care: N/A Additional Instructions: Metoprolol increased to 100mg daily *Expected Signs/Symptoms: Improvement in symproms *Notify Physician if: chest pain, shortness of breath or concerning symptoms *During Business Hours Contact: Dr Sims or Dr Chaney *After Business Hours Contact: Cara oncall physician *Pending Lab/Results: No Pending Lab - Referrals/Follow Up *Referrals/Follow Up: Sharyn Chaney MD [Physician] - (call and schedule appointment) Yadiel Sims MD [Primary Care Provider] - (follow up in 1 week call and schedule appointment) - Patient Handouts - Dismissal Complete Discharge Instructions are:: Complete Physician Narrative - Narrative Attestation Narrative: Date: 03/02/18 Time: 1220 Pt admitted for cp rule out and work up was negative. D-dimer was also negative. Pt was admitted for NSTEMI just a couple of days ago and underwent a heart cath that showed some CAD that recommended treating medically. Discussed case with and he agreed that the current cp episodes are likely anxiety related. He recommended increasing metoprolol to 100mg and having pt follow up with pcp. Gen: AAOx3, no acute distress Cards: RRR without murmurs Lungs: CTAB without wheezing Ext: No edema or cyanosis Skin: dry, intact
== END 2018-03-02 10:30 | disposition home or self-care (01) ==
LOC: MED 16:39 → INTOOBSV 17:22
PROVIDERS: ADMIT Internal Medicine Cardiovascular Disease; ATTEND Internal Medicine